=== PATIENT | male | born 1960 | race Caucasian/White ===

== ENCOUNTER 2024-04-07 16:48 | Inpatient (IN) | payer MEDICARE, BC, SELFPAY ==
[2024-04-07 14:17] VITALS: BP 144/82
--- NOTE | 2024-04-07 15:07 | ED.GENMED ---
History of Present Illness
General
Chief Complaint: Skin Problem
Source: patient and spouse
Time Seen by Provider: 04/07/24 15:05
Travel History
Have you had any contact with someone who has COVID-19?: No
Do you have any symptoms of coronavirus? Fever > 100 degrees, chills, cough, shortness of breath, sore throat, loss of taste or smell, muscle aches, or headache?: No
History of Present Illness
History of Present Illness:
This patient is a 64-year-old male who states that on March 26 he suffered a laceration to the right posterior calf area when a sharp edge of lattice struck his leg. He went to an urgent care, and sutures were placed. He was put on 2 antibiotics for
a week, 1 of which was named doxycycline and another described as a 'blue pill but I do not know the name'. He has noticed in the last few days that the areas become increasingly swollen, painful, red, and warm. He denies fever, chills, sweats,
nausea, vomiting, numbness, tingling, purulent discharge. He does note occasional clear discharge. He denies a history of diabetes or neuropathy. He denies chest pain, shortness of breath, or other complaints. He went to the urgent care today
and was referred to the emergency room.
Past History
Past History
ED Past Medical History: Asthma, Hypercholesterolemia, Other (RA, diverticulitis) and Other (Chronic pain, ulnar nerve dysfunction)
ED Past Surgical History: Orthopedic (Left foot surgery, ulnar nerve surgery left arm) and Other (Skin graft right foot)
Social History
Tobacco: Non-smoker
Alcohol: Occasional
Drug: None
Personal:
Living: with family
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
Phy Exam
Physical Exam
Physical Exam:
GENERAL: Alert , in no apparent distress, very pleasant
EYE: pupils equal and reactive
NECK: Supple, no significant adenopathy.
ENT: o/p clr, mmm.
CARDIAC: Regular rate and rhythm .
LUNGS: Clear breath sounds bilaterally, no acute respiratory distress, no wheezes/rales/rhonchi
ABDOMEN: Soft, without focal tenderness, no r/g, no cvat
NEUROLOGICAL: Alert and oriented, no focal neuro deficits
SKIN: Warm and dry, skin intact except for a large wound noted at the right posterior calf, open but dry, necrotic/dark tissue noted centrally, no fluctuance/crepitus/active drainage. Wound is noted to have surroundnig erythema/warmth/swelling
extend to distal aspect calf. 2+ dp pulses bilat.
MUSCULOSKELETAL: No edema except as above, well perfused.
PSYCH: Normal and appropriate interaction.
Course
Orders/Labs/Results
Orders:
Orders
04/07/24 Dinner
Regular
At Your Request: Full Participation
04/07/24 15:05
Tibia/Fibula, Right 2 View [CR Leg Tibia/fibula Right 2 Vw] Urgent
Comment:
Reason For Exam: injury
04/07/24 15:16
Complete Blood Count/With Diff Urgent
Comprehensive Metabolic Panel Urgent
Blood Culture Stat
MELE Source: Blood/Venous
Specimen Description:
04/07/24 15:20
Vancomycin [Vancocin] 2,000 mg 0.9% Sodium Chloride 500 ml [Nss] 500 ml IV NOW
04/07/24 15:22
CeFAZolin 2 GRAM [Ancef] 2 grams in 10 ml IV NOW
04/07/24 16:38
Admit/Transfer Patient As Directed
Co-Sign Provider:
Level of Care: Inpatient admission
Assign to:: Medical/Surgical
Physician / Group: monica
Diagnosis: puncture wound
Reason for Hospitalization: puncture wound right posterior calf/cellulitis
Expected length of stay greater than two midnights?: Yes
ELOS- Estimated Length of Stay in days: 2
I certify the patient meets the requirements for IP care: Yes
04/07/24 16:39
Code Status As Directed
Resuscitation Status: Full Code
04/07/24 18:20
Activity As Directed
Activity Level: As Tolerated
Vital Signs As Directed
Frequency: Per unit guidelines
DX Deep Vein Thrombosis Video Routine
04/07/24 18:30
Atorvastatin [Lipitor] 10 mg PO QPM
04/07/24 18:33
Oxycodone/Acetaminophen [Percocet 5/325] 2 tablet PO Q6HPRN PRN
04/07/24 20:00
Heparin 5,000 units SC Q12
04/08/24 04:15
Complete Blood Count/With Diff IN AM
Comprehensive Metabolic Panel IN AM
04/08/24 08:00
Hydrochlorothiazide [Oretic] 25 mg PO DAILY
Multivitamin [Theragran] 1 tablet PO DAILY
testosterone 1 pump TOPICAL DAILY
Abnormal Lab Results
04/07/24
15:16
RBC 4.21 L 10^6/uL
(4.70-6.10)
Hgb 12.7 L g/dL
(13.0-18.0)
Hct 36.1 L %
(39.0-52.0)
Creatinine 0.5 L mg/dL
(0.7-1.3)
Glucose 102 H mg/dl
(70-99)
Total Protein 5.7 L g/dl
(6.3-8.2)
04/07/24 15:16
04/07/24 15:16
Vital Signs
Initial and Last Documented VS:
Initial Vital Signs
Temp Pulse Resp BP Pulse Ox
98.1 F 85 18 144/82 95
04/07/24 14:17 04/07/24 14:17 04/07/24 14:17 04/07/24 14:17 04/07/24 14:17
Last Documented Vital Signs
Temp Pulse Resp BP Pulse Ox
98.4 F 74 20 141/75 98
04/08/24 07:48 04/08/24 07:48 04/08/24 07:48 04/08/24 07:48 04/08/24 08:10
*Critical Care Note
Total Time (30-74mins, 75-104mins- exclusive of procedures): Not Applicable
Update Note
Update Note:
Patient presents to the Emergency Department with ___R calf wound
Number and Complexity of Problems Addressed at the Encounter
� Chronic conditions affecting care:
� Acute Exacerbation and/or Progression of Chronic Illness:
� Differential Diagnosis includes: but not limited to abscess, cellulitis, foreign body retained, etc etc.
Amount and/or Complexity of Data to be Reviewed and Analyzed
� I performed an independent evaluation of and my interpretation is:
EKG:
CT:
Xrays: Read by radiology, unremarkable, no fracture or dislocation, no foreign bodies noted
Laboratory Studies: Mild nonspecific anemia, very slight elevated blood sugar
Other:
� Review of other/old records reveals: Patient was in the hospital October 2022 with a leg wound infection, initially treated with vancomycin and then changed to cefazolin.
� Clinical information was obtained by an independent historian:. Information also from pharmacist here who clarifies that patient was on clindamycin 300 mg twice daily for 7 days and doxycycline 100 mg twice daily x 10 days
� Prescriptions/Medications Considered but not given:
� Further testing considered but not performed:
Risk of Complications and/or Morbidity or Mortality of Patient Management
� Social determinants of health affecting care:
� Discussion with other providers (PCP, Hospitalists, Consultants, etc):
� Escalation of care including admission/observation vs risk of discharge considered: Will send [place] text to hospitalist now recommending admission/observation for continued IV antibiotics.
ED Attending Note
-
Portions of this chart may have been created with voice recognition software.� Occasional wrong word or��sound alike� substitutions may have occurred due to the inherent limitations of voice recognition software.
Discharge Plan
Departure
Patient Disposition: Admit
Date of Disposition: 04/07/24
Time of Disposition: 16:02
Admit to: Med/Surg
Presentation/result/management discussed w/ accepting MD/DO: Hospitalist
Condition: Good
Discharge Problem:
Cellulitis of right lower extremity
Interventions
Interventions:
*Risk Screen - Suicide Last Done: 04/07/24 14:17
*General Assessment Last Done: 04/07/24 14:17
*Neglect/Abuse Screening Last Done: 04/07/24 14:17
ED- Fall Risk Assessment Last Done: 04/07/24 18:39
*ED COVID-19 Vaccine History Last Done: 04/07/24 18:32
*Nursing Disposition Last Done: 04/07/24 18:39
ED-Skin Assessment Last Done: 04/07/24 15:40
Discharge Date and Time
Discharge Date/Time: 04/07/24 18:40
[2024-04-07 15:33] LABS: % Basophils 0.3 % (0-2); % Eosinophils 0.6 % (0-6); % Immature Granulocytes 0.5 % (0-0.5); % Lymphocytes 24.7 % (20.5-51.1); % Neutrophils 66.9 % (42.2-75.2); Absolute Lymphocytes 1.6 10^3/uL (1.2-3.4); Absolute Monocytes 0.5 10^3/uL (0.1-0.6); Absolute Neutrophils 4.3 10^3/uL (1.4-6.5); Hematocrit 36.1 % (39.0-52.0); Hemoglobin 12.7 g/dL (13.0-18.0); Mean Corp Hgb Conc. 35.2 g/dL (33.0-37.0); Mean Corpuscular Hgb 30.2 pg (27.0-31.0); Mean Corpuscular Volume 85.7 fL (80.0-94.0); Mean Platelet Volume 8.9 fL (7.4-10.4); Nucleated Red Blood Cells % 0 % (-); Platelet Count 229 10^3/uL (130-400); Red Blood Cell Count 4.21 10^6/uL (4.70-6.10); Red Cell Dist. Width 13.7 % (11.5-14.5); White Blood Cell Count 6.4 10^3/uL (4.8-10.8)
[2024-04-07 15:47] LABS: ALT (SGPT) 23 U/L (0-50); AST (SGOT) 26 U/L (17-59); Albumin 3.5 g/dl (3.5-5.0); Alkaline Phosphatase 85 U/L (38-126); Blood Urea Nitrogen 17 mg/dl (9-20); Calcium 9.1 mg/dl (8.4-10.2); Carbon Dioxide 26 mmol/L (22-30); Chloride 106 mmol/L (98-107); Estimated Creatinine Clearance > 125 ml/min; Glucose 102 mg/dl (70-99); Sodium 138 mmol/L (135-145); Total Bilirubin 0.9 mg/dl (0.2-1.3); Total Protein 5.7 g/dl (6.3-8.2); eGFR > 60.00
[2024-04-07] MEDS: ANCEF 10 IV (15:55)
[2024-04-07] MEDS: VANCOCIN 540 MG IV (15:56)
--- NOTE | 2024-04-07 16:45 | HPS.HSE ---
Family Physician
-
Family Physician: Clari Bowers
Chief Complaint
-
wound
History of Present Illness
64-year-old male past medical history of right lower extremity cellulitis, chronic ulcer right plantar midfoot, asthma, hyperlipidemia, presenting with puncture wound. On March 26 he was working on a deck outside and a sharp piece of wood pierced the
posterior part of his right leg. He went to urgent care and had wood splinters removed and sutures placed however they did not hold. He was started on doxycycline and clindamycin that day and he completed 10-day course. Over the past 2 days he
has noticed clear discharge from the wound and increased swelling, redness and pain around the wound. He went to urgent care today and he was referred to the emergency room.
Medical History
Past Medical History
Past Medical History: Reports Other (lower extremity cellulitis, chronic ulcer right plantar midfoot, asthma, hyperlipidemia)
Past Surgical History: Reports Other (Orthopedic (Left foot surgery, ulnar nerve surgery left arm) and Other (Skin graft right foot))
Social History
Tobacco: Non-smoker
Alcohol: None
Drug: None
Family History
Family History: Not pertinent
Allergies / Home Medications
Allergies reflects when Allergies were last updated in [employer].
Home Medications with original date entered in [employer]
Allergy/Medication List:
Allergies
Allergy/AdvReac Type Severity Reaction Status Date / Time
amoxicillin [From Augmentin] Allergy nausea, Verified 04/07/24 15:17
diarrhea
clavulanic acid Allergy nausea, Verified 04/07/24 15:17
[From Augmentin] diarrhea
Home Medications
dupilumab 300 mg/2 mL subcutaneous syringe (Dupixent) 300 mg SQ Q2W 11/16/21
multivitamin with folic acid 400 mcg tablet (Tab-A-Renée) 1 tab PO DAILY 11/16/21
simvastatin 20 mg tablet 20 mg PO QPM 11/16/21
hydrochlorothiazide 25 mg tablet 25 mg PO DAILY 04/07/22
oxycodone-acetaminophen 10 mg-325 mg tablet 1 tab PO Q6HPRN PRN mild pain 04/07/24
testosterone 1 pump topical DAILY 04/07/24
Review of Systems
-
History Source: Patient
A 12 point ROS was completed and negative except as noted: Yes
Constitutional: Reports No Symptoms
EENT: Reports No Symptoms
Respiratory: Reports No Symptoms
Cardiac: Reports No Symptoms
Abdomen/GI: Reports No Symptoms
: Reports No Symptoms
Musculoskeletal: Reports No Symptoms
Skin: Reports See HPI
Neurological: Reports No Symptoms
Endocrine: Reports No Symptoms
Hematologic/Lymphatic: Reports No Symptoms
Psych: Reports No Symptoms
Physical Exam
Vital Signs
Vital Signs
Temp Pulse Resp BP Pulse Ox
98.1 F 85 18 144/82 95
04/07/24 14:17 04/07/24 14:17 04/07/24 14:17 04/07/24 14:17 04/07/24 14:17
Physical Exam
General: Well Developed, Well Nourished and No Apparent Distress
HEENT: NormoCephalic, Moist mucous membranes and Atraumatic
Respiratory: Clear
Cardiac: S1/S2 and Regular Rhythm; No Murmur or Rub
GI: Soft, Non Tender, Non Distended and Normal Bowel Sounds; No Organomegaly
Rectal: Deferred by Provider
Musculoskeletal: No Clubbing, No Cyanosis and No Edema
Skin: Other (posterior rigt calf wound with surrounding erythema ); No Rash
Neuro: Nonfocal/grossly intact
Laboratory Results
-
04/07/24 15:16
04/07/24 15:16
Laboratory Results
Total Bilirubin 0.9 mg/dl (0.2-1.3) 04/07/24 15:16
AST 26 U/L (17-59) 04/07/24 15:16
ALT 23 U/L (0-50) 04/07/24 15:16
Alkaline Phosphatase 85 U/L (38-126) 04/07/24 15:16
Data Reviewed
-
Lab Data: Labs Reviewed by me
Old Records: Reviewed
Impression/Plan
-
IMPRESSION:
PLAN:
# Puncture wound of posterior right calf with associated cellulitis
-Patient given tetanus/diphtheria vaccine
-Wound does not appear deep
-Tibia/fibula x-ray negative with no foreign body visible
-Vancomycin, cefazolin given in ER, continue vancomycin
-Wound care consulted
History of right plantar foot ulcer
-Appears healed
Asthma
-On Dupixent
Essential hypertension
-Continue hydrochlorothiazide
Hyperlipidemia
-Continue statin
Arthritis
-Continue Percocet
Full code
DVT prophylaxis�heparin
Regular diet
[2024-04-07 17:30] VITALS: BP 144/80
[2024-04-07] MEDS: PERCOCET 5/325 2 TABLET PO (18:38)
[2024-04-07 18:55] VITALS: BP 132/75; BMI 30.3
--- NOTE | 2024-04-07 19:09 | PHA.VAN.IN ---
Assessment
- Assessment
Renal Function: Appears similar to baseline (08/04/22 BASELINE SCR: 0.6)
Concomitant Antimicrobials: NONE
- Previous Dosing Experience
Previous Regimen: NONE
AUC Dosing Plan
- Dosing Variables
Dosing Weight (kg): 96.1
Dosing CrCl (ml/min): 100
Vd coefficient (L/kg): 0.6
- Empiric Dosing
Initial / Loading Dose: 2GM
Maintenance Regimen: 1GM IV Q12H
Estimated AUC (mcg*h/mL): 414
Estimated Peak (mcg*h/mL): 26.7
Estimated Trough (mcg/ml): 10.2
Estimated Half Life (H): 7.9
Pharmacokinetics Vancomycin I
- -
Patient Age: 64
Patient Sex: Male
Vancomycin Day #: 1
Indication: Skin And Soft Tissue ([R] CALF CELLULITIS)
Requesting Provider: GERARD
Height / Weight:
Height 5 ft 10 in
Actual Weight 95.708 kg
Pertinent Past Medical History: FAILED OUTPT TX WITH DOXYCYCLINE/CLINDAMYCIN
- Vital Signs / Lab Results
Temp Pulse Resp BP Pulse Ox
98.9 F 87 18 132/75 96
04/07/24 18:55 04/07/24 18:55 04/07/24 18:55 04/07/24 18:55 04/07/24 18:55
Lab Results - Hematology
04/07/24
15:16
WBC 6.4
Lab Results - Chemistry
04/07/24
15:16
BUN 17
Creatinine 0.5 L
Estimated Creat Clear > 125
Albumin 3.5
--- NOTE | 2024-04-07 19:19 | PTCARENOTE ---
Patient admitted to room 401-01 from the ER. Vital signs stable. Reviewed plan of care with patient. Patient verbalizes understanding of teaching and denies questions at this time. Patient rates pain in right calf a 9/10. Given 2 Percocets as
ordered for pain. Will re-evaluate for pain relief.
[2024-04-07] MEDS: LIPITOR 10 MG PO (19:37)
[2024-04-07] MEDS: HEPARIN 5000 UNITS SC (19:38)
[2024-04-07] MEDS: ADACEL 0.5 ML IM (19:38)
[2024-04-07 23:25] VITALS: BP 139/78
[2024-04-08] MEDS: PERCOCET 5/325 2 TABLET PO ×3 (03:37→22:20)
[2024-04-08 04:45] LABS: % Basophils 0.4 % (0-2); % Eosinophils 1.3 % (0-6); % Immature Granulocytes 0.4 % (0-0.5); % Lymphocytes 33.2 % (20.5-51.1); % Monocytes 8.6 % (1.7-9.3); % Neutrophils 56.1 % (42.2-75.2); Absolute Eosinophils 0.1 10^3/uL (0-0.7); Absolute Lymphocytes 1.8 10^3/uL (1.2-3.4); Absolute Monocytes 0.5 10^3/uL (0.1-0.6); Absolute Neutrophils 3.1 10^3/uL (1.4-6.5); Hematocrit 35.6 % (39.0-52.0); Hemoglobin 12.2 g/dL (13.0-18.0); Mean Corp Hgb Conc. 34.3 g/dL (33.0-37.0); Mean Corpuscular Hgb 29.8 pg (27.0-31.0); Mean Corpuscular Volume 86.8 fL (80.0-94.0); Mean Platelet Volume 9.1 fL (7.4-10.4); Nucleated Red Blood Cells % 0 % (-); Platelet Count 233 10^3/uL (130-400); Red Cell Dist. Width 13.8 % (11.5-14.5); White Blood Cell Count 5.5 10^3/uL (4.8-10.8)
[2024-04-08 05:29] LABS: ALT (SGPT) 24 U/L (0-50); AST (SGOT) 22 U/L (17-59); Albumin 3.2 g/dl (3.5-5.0); Alkaline Phosphatase 88 U/L (38-126); Blood Urea Nitrogen 17 mg/dl (9-20); Calcium 8.7 mg/dl (8.4-10.2); Carbon Dioxide 28 mmol/L (22-30); Chloride 107 mmol/L (98-107); Estimated Creatinine Clearance > 125 ml/min; Glucose 117 mg/dl (70-99); Sodium 139 mmol/L (135-145); Total Bilirubin 0.5 mg/dl (0.2-1.3); Total Protein 5.5 g/dl (6.3-8.2); eGFR > 60.00
[2024-04-08] MEDS: VANCOCIN 200 IV (05:38)
[2024-04-08 07:48] VITALS: BP 141/75
--- NOTE | 2024-04-08 08:16 | PHA.VAN.FU ---
Vancomycin Assessment / Plan
- Assessment
Renal Function: Stable
WBC's are: WNL
In the past 24 hrs, patient has been: Afebrile
- Dosing Plan
Adjust Regimen to: Vanc 1250mg Q12H starting at 1800
New Regimen Predicts: AUC (429), Peak (29.5), Trough (10)
- Monitoring Plan
No level(s) ordered at this time: consider levels in next few days
- Follow Up
Pharmacy will continue to follow.
Vancomycin Follow UP
- -
Patient Age: 64
Patient Sex: Male
Vancomycin Day #: 2
Indication: Skin And Soft Tissue
Requesting Provider: Dr. Duron
Pertinent Antimicrobial Allergies:
amoxicillin/clavulanate - nausea / diarrhea
Height / Weight:
Height 5 ft 10 in
Actual Weight 95.708 kg
Pertinent Past Medical History: BMI ~30
- Vital Signs / Lab Results
Temp Pulse Resp BP Pulse Ox
98.4 F 74 20 141/75 95
04/08/24 07:48 04/08/24 07:48 04/08/24 07:48 04/08/24 07:48 04/08/24 07:48
Lab Results - Hematology
04/07/24 04/08/24
15:16 04:15
WBC 6.4 5.5
Lab Results - Chemistry
04/07/24 04/08/24
15:16 04:15
BUN 17 17
Creatinine 0.5 L 0.5 L
Estimated Creat Clear > 125 > 125
Albumin 3.5 3.2 L
--- NOTE | 2024-04-08 08:30 | WOUNDNOTE ---
[facility] RN note: Patient admitted with R posterior calf wound with possible cellulitis.
See H&P for complete history.
PMH: R plantar foot ulcer with surgery, now healed, asthma.
Wound Location and type/assessment: Patient admitted with: full thickness R posterior calf wound d/t trauma to subcutaneous layer or deeper. Wound pink, yellow with some loosening black necrotic tissue. R tib fib x-ray nothing acute. +Palpable R
pedal pulse. Mild buttocks rash he uses Lotrimin cream.
Appetite: regular diet.
Pressure redistribution devices in place: [employer] Accumax. Patient is mobile.
Plan: R calf dressing changed. Air chair cushion given to help cushion calf while in bed. Patient instructed local care and to make appointment at [facility] next week.
Updated Dr. Balderas re: wound appearance; defer to hospitalist if general surgeon inpatient vs outpatient for bedside debridement evaulation; wait response. Updated MICH Manzo. Wound supplies given to patient.
Care plan to be updated and will follow as needed.
Recommend follow up at wound care center upon discharge.
[2024-04-08] MEDS: ORETIC 25 MG PO (08:31)
[2024-04-08] MEDS: HEPARIN 5000 UNITS SC ×2 (08:31→19:36)
[2024-04-08] MEDS: THERAGRAN 1 TABLET PO (08:31)
--- NOTE | 2024-04-08 09:43 | W.PN.HOSP.TC ---
Today's Communication/Plan
-
For further surgical debridement after consultation hopefully today
Continue present course of antibiotics
Was intolerant to doxycycline as outpatient
Alternative may be Bactrim that he is taken before
Assessment / Plan
Assessment / Plan
64-year-old male past medical history of right lower extremity cellulitis, chronic ulcer right plantar midfoot, asthma, hyperlipidemia, presenting with puncture wound. On March 26 he was working on a deck outside and a sharp piece of wood pierced the
posterior part of his right leg. He went to urgent care and had wood splinters removed and sutures placed however they did not hold. He was started on doxycycline and clindamycin that day and he completed 10-day course. Over the past 2 days he
has noticed clear discharge from the wound and increased swelling, redness and pain around the wound. He went to urgent care today and he was referred to the emergency room.
# Puncture wound of posterior right calf with associated cellulitis
-Patient given tetanus/diphtheria vaccine
-Wound was noted to have some tunneling to about 2.5 cm proximally
-Tibia/fibula x-ray negative with no foreign body visible
-Vancomycin, cefazolin given in ER, continue vancomycin
-Wound care consulted and note appreciated and reviewed
-Will consult general surgery for further debridement
History of right plantar foot ulcer
-Appears healed
Asthma
-On Dupixent
Essential hypertension
-Continue hydrochlorothiazide
Hyperlipidemia
-Continue statin
Arthritis
-Continue Percocet
Full code
DVT prophylaxis�heparin
Regular diet
Anticipated Discharge: Within 24 hours
Subjective/Interval History
-
Date of Service: April 08, 2024
Patient is somewhat anxious to leave after has been seen and evaluated by wound care/informed him that we need surgery input for further debridement hopefully at bedside he is in agreement
Objective Data
-
Labs:
Laboratory Results
04/08/24
04:15
WBC 5.5
Hgb 12.2 L
Hct 35.6 L
Plt Count 233
Sodium 139
Potassium 4.0
Chloride 107
Carbon Dioxide 28
BUN 17
Creatinine 0.5 L
Glucose 117 H
Calcium 8.7
Total Bilirubin 0.5
AST 22
ALT 24
Alkaline Phosphatase 88
Vital Signs:
Vital Signs
Temp Pulse Resp BP Pulse Ox
98.4 F 74 20 141/75 98
04/08/24 07:48 04/08/24 07:48 04/08/24 07:48 04/08/24 07:48 04/08/24 08:10
I&O
04/07/24 04/08/24 04/09/24
06:59 06:59 06:59
Intake Total 680 / 680
Balance 680 / 680
Review of Systems
-
History Source: Patient
All other systems: Not reviewed unless documented
Skin: Reports Sores
Physical Exam
-
General: Well Developed
HEENT: Normocephalic
Respiratory: Clear to Auscultation
Cardiac: Regular Rhythm
Musculoskeletal: Edema, Right Lower Extrem (Large open wound in posterior calf with serous drainage surrounding erythema)
Skin: Ulcers
--- NOTE | 2024-04-08 15:27 | CM ---
Alert awake oriented patient who lives with his daughter Melissa who lives in a 2 story home with 1 step to enter and 13 steps to bed and bathroom. He is independent in driving and in all activities of daily living.He was offered VN he declined need.He
has Inogen at home uses prn.
No VN hx / No SNF history
Pharmacy [facility]
PCP DR Bowers
PLAN Home Declined VN
[2024-04-08 15:57] VITALS: BP 140/83
[2024-04-08] MEDS: VANCOCIN 275 MG IV (17:27)
[2024-04-08] MEDS: LIPITOR 10 MG PO (17:27)
--- NOTE | 2024-04-08 18:23 | CON.GS ---
Consultation
-
Performing Provider: Harish
Reason for Consultation: Right lower extremity wound with cellulitis
Medical History
-
Chief Complaint: Right lower extremity wound
History of Present Illness:
Patient is a 64-year-old male who sustained a traumatic injury to the right lower extremity while working on his deck. He initially sought care at an urgent care center and had the wound washed out and closed with sutures. He was started on a
10-day course of antibiotics.
States that the wound broke down, sutures were released and then the area became swollen with increased redness and pain prompting emergency department evaluation and subsequent hospitalization. Surgery consultation requested for evaluation and
possible debridement.
Past Medical History
Past Medical History: Other (Previous history of lower extremity cellulitis, chronic plantar midfoot ulcer, asthma, hyperlipidemia)
Past Surgical History: Other (Left foot surgery, ulnar nerve surgery in the left arm, skin grafting to the right foot)
Social History
Tobacco: Non-Smoker
Living: With Family
Employment: Disabled
Family History
Family History: Reviewed & Not Pertinent
Allergies / Home Medications
Allergy/AdvReac Type Severity Reaction Status Date / Time
amoxicillin [From Augmentin] Allergy nausea, Verified 04/07/24 15:17
diarrhea
clavulanic acid Allergy nausea, Verified 04/07/24 15:17
[From Augmentin] diarrhea
�Medication �Instructions �Recorded �Confirmed �Type
dupilumab 300 mg/2 mL subcutaneous 300 mg SQ Q2W 11/16/21 04/07/24 History
syringe (Dupixent)
multivitamin with folic acid 400 1 tab PO DAILY 11/16/21 04/07/24 History
mcg tablet (Tab-A-Renée)
simvastatin 20 mg tablet 20 mg PO QPM 11/16/21 04/07/24 History
hydrochlorothiazide 25 mg tablet 25 mg PO DAILY 04/07/22 04/07/24 History
oxycodone-acetaminophen 10 mg-325 1 tab PO Q6HPRN PRN mild pain 04/07/24 04/07/24 History
mg tablet
testosterone 1 pump topical DAILY 04/07/24 04/07/24 History
Review of Systems
-
History Source: Patient
All other systems: Negative unless noted
A 10 point review of systems was completed, and was negative except as per HPI.
Physical Exam
Vital Signs
Temp Pulse Resp BP Pulse Ox
98.6 F 66 18 140/83 99
04/08/24 15:57 04/08/24 15:57 04/08/24 15:57 04/08/24 15:57 04/08/24 15:57
04/07/24 04/08/24 04/09/24
06:59 06:59 06:59
Actual Weight 95.708 kg
Body Mass Index (BMI) 30.3
Lab Results
04/08/24 04:15
04/08/24 04:15
WBC 5.5 10^3/uL (4.8-10.8) 04/08/24 04:15
Hgb 12.2 g/dL (13.0-18.0) L 04/08/24 04:15
Hct 35.6 % (39.0-52.0) L 04/08/24 04:15
Plt Count 233 10^3/uL (130-400) 04/08/24 04:15
Abs Immat Gran (auto) 0.0 10^3/uL (0-0.05) 04/08/24 04:15
Neutrophils % 56.1 % (42.2-75.2) 04/08/24 04:15
Physical Exam
General: Well Developed, Well Nourished, No Apparent Distress, Comfortable and Other (Lying in hospital bed)
HEENT: Normocephalic, Anicteric and Moist Mucous Membranes
Respiratory: Non Labored Respirations
Cardiac: Regular Rhythm
Skin: Other (Right lower extremity: Posterior calf with open wound and areas of necrotic tissue/nonviable skin. Some sloughing as well. Surrounding erythema and edema.)
Data Reviewed
-
Radiology: Image Personally Visualized and interpreted (Right leg tibia/fibula 4 views 04/07/2024: No fracture or dislocation. Soft tissues are unremarkable)
Assessment / Plan
-
Assessment: 64-year-old male with traumatic right lower extremity wound with resultant cellulitis. On examination there are clearly areas of full-thickness devitalized skin and building up of sloughing.
Advised patient of recommendation for bedside debridement to facilitate healing process which she was in agreement with.
No local anesthetic required.
Utilizing sharp scissor dissection, sharp excisional debridement was performed to remove all of the necrotic dermis down to underlying subcutaneous fat. No tendon, muscle exposure. Areas of exudative buildup/softening sharply excisionally debrided
as well with scissors. Wound is triangular shaped measuring 6 x 6 x 5.5 cm. No significant undermining. No identified abscess or deeper fluid collections.
Plan: No further role for additional debridement at this time anticipated.
Local wound care: Saline moistened gauze as wet-to-dry dressing for the next few days to help with continued mechanical debridement; ABD pad and wrap extremity.
Antibiotics as per primary service for surrounding cellulitis.
Will reevaluate wound in a.m. to confirm stability prior to discharge. Would anticipate further outpatient care with the wound care clinic.
[2024-04-08] MEDS: LOTRIMIN 1% CREAM 1 APPLIC TOPICAL (19:36)
[2024-04-08 23:06] VITALS: BP 138/76
[2024-04-09] MEDS: VANCOCIN 275 MG IV (05:00)
[2024-04-09] MEDS: PERCOCET 5/325 2 TABLET PO (06:28)
[2024-04-09 07:30] VITALS: BP 160/89
--- NOTE | 2024-04-09 07:51 | PHA.VAN.FU ---
Vancomycin Assessment / Plan
- Assessment
Renal Function: No New Labs Today
In the past 24 hrs, patient has been: Afebrile
- Dosing Plan
Continue: Vanc 1250mg Q12H
- Monitoring Plan
No level(s) ordered at this time: consider levels in next few days
- Follow Up
Pharmacy will continue to follow.
Vancomycin Follow UP
- -
Patient Age: 64
Patient Sex: Male
Vancomycin Day #: 3
Indication: Skin And Soft Tissue
Requesting Provider: Dr. Duron
Pertinent Antimicrobial Allergies:
amoxicillin/clavulanate - nausea / diarrhea
Height / Weight:
Height 5 ft 10 in
Actual Weight 95.708 kg
Pertinent Past Medical History: BMI ~30
- Vital Signs / Lab Results
Temp Pulse Resp BP Pulse Ox
98 F 70 16 160/89 98
04/09/24 07:30 04/09/24 07:30 04/09/24 07:30 04/09/24 07:30 04/09/24 07:30
Lab Results - Hematology
04/07/24 04/08/24
15:16 04:15
WBC 6.4 5.5
Lab Results - Chemistry
04/07/24 04/08/24
15:16 04:15
BUN 17 17
Creatinine 0.5 L 0.5 L
Estimated Creat Clear > 125 > 125
Albumin 3.5 3.2 L
Microbiology Results
04/07/24 15:16 Blood Culture - Preliminary
Blood/Venous No Growth in 24 hours- Final report to follow
[2024-04-09] MEDS: ORETIC 25 MG PO (07:54)
[2024-04-09] MEDS: HEPARIN 5000 UNITS SC (07:54)
[2024-04-09] MEDS: THERAGRAN 1 TABLET PO (07:54)
[2024-04-09] MEDS: LOTRIMIN 1% CREAM 1 APPLIC TOPICAL (07:55)
--- NOTE | 2024-04-09 09:10 | W.DS.TRANS ---
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
-
Discharge Instructions:
Instructions:
Stand-Alone Forms:
Changes to Home Medications: Yes
Discharge Medications:
DC Medications w/original date entered in [facility]
dupilumab 300 mg/2 mL subcutaneous syringe (Dupixent) 300 mg SQ Q2W 11/16/21
multivitamin with folic acid 400 mcg tablet (Tab-A-Renée) 1 tab PO DAILY 11/16/21
simvastatin 20 mg tablet 20 mg PO QPM 11/16/21
hydrochlorothiazide 25 mg tablet 25 mg PO DAILY 04/07/22
oxycodone-acetaminophen 10 mg-325 mg tablet 1 tab PO Q6HPRN PRN mild pain 04/07/24
testosterone 1 pump topical DAILY 04/07/24
sulfamethoxazole 800 mg-trimethoprim 160 mg tablet (Bactrim DS) 1 tab PO BID #20 tabs 04/09/24
Home Medication Changes
sulfamethoxazole 800 mg-trimethoprim 160 mg tablet (Bactrim DS) 1 tab PO BID #20 tabs 04/09/24
Pending Results: No
--- NOTE | 2024-04-09 09:41 | PTCARENOTE ---
Reviewed discharge instructions with patient. Reviewed wound care instructions with patient. Patient made follow up appointment with wound care center for . Patient verbalizes all education related to discharge instructions. Peripheral IV
removed. Patient awaiting ride home at this time.
--- NOTE | 2024-04-09 09:45 | WOUNDNOTE ---
R LATERAL LOWER LEG
--- NOTE | 2024-04-09 09:46 | WOUNDNOTE ---
WIL RN NOTE: Followed up today along with Dr. Moreira at bedside. No change in wound care, saline wtd, dressing changed. Nurse Gonzalez updated discharge instructions already with appropriate wound care, patient will follow at [facility], apt. .
--- NOTE | 2024-04-09 09:59 | CM ---
MD entered order for discharge.
He said that dgvidal Peraza will drive him home.
Offered VN he declined need.
He said he will follow up with wound care center.
PLAN Home with no needs
--- NOTE | 2024-04-09 10:09 | PTCARENOTE ---
Dressing of right calf changed by team. Patient has no questions at this time. Patient awaiting to transport home.
--- NOTE | 2024-04-09 10:39 | W.PN.GS2 ---
Today's Communication / Plan
-
Continue local wound care
Assessment / Plan
-
Assessment: 64-year-old male with traumatic right lower extremity wound with resultant cellulitis.
PPD #1 bedside debridement
Wound are follow up planned next week
Plan:
No further role for additional debridement at this time anticipated.
Local wound care: Saline moistened gauze as wet-to-dry dressing for the next few days to help with continued mechanical debridement; ABD pad and wrap extremity.
Antibiotics as per primary service for surrounding cellulitis.
Ok for d/c from surgical standpoint
Subjective Data
-
Date of Service: April 09, 2024
Patient seen and examined at bedside with Dr. Moreira. Denies pain. Eager to go home.
Objective Data
-
Intake and Output
04/08/24 04/09/24 04/10/24
06:59 06:59 06:59
Intake Total 680 / 680 1929 193
Balance 680 / 680 1929
Intake:
Oral fluids 480 / 480 1380 / 1380
IV piggybacks 200 / 200 550 / 550
Other:
Number of approximated MODERATE 2
amounts of urine
Number of approximated LARGE 5
amounts of urine
How many times incontinent 3
MODERATE amount urine
Vital Signs
Temp Pulse Resp BP Pulse Ox
98 F 70 16 160/89 97
04/09/24 07:30 04/09/24 07:54 04/09/24 07:30 04/09/24 07:54 04/09/24 09:34
Lab Results
04/08/24 04:15
04/08/24 04:15
Calcium 8.7 mg/dl (8.4-10.2) 04/08/24 04:15
Total Bilirubin 0.5 mg/dl (0.2-1.3) 04/08/24 04:15
AST 22 U/L (17-59) 04/08/24 04:15
ALT 24 U/L (0-50) 04/08/24 04:15
Alkaline Phosphatase 88 U/L (38-126) 04/08/24 04:15
Total Protein 5.5 g/dl (6.3-8.2) L 04/08/24 04:15
Albumin 3.2 g/dl (3.5-5.0) L 04/08/24 04:15
Physical Exam
-
NAD
Right calf wound with granulating tissue in wound bed, some slough present. Surrounding erythema present but less than prior markings.
--- NOTE | 2024-04-09 12:04 | W.DCSUMMARY ---
Discharge Summary
Discharge Data
Date of Admission: 04/07/24
Date of Discharge: 04/09/24
-
Pending Results: No
Hospital Course
This is a 64-year-old male who suffered a traumatic injury to his right lower extremity while working on his deck. Apparently a sharp piece of wood pierced the posterior part of his right leg he went to an urgent care facility and had wood
splinters removed and sutures were placed these apparently did not hold and not diuresed he was started on a course of doxycycline and clindamycin but could not tolerate the doxycycline portion in the past 2 days prior to presentation had increased
swelling of the wound redness and pain around he was referred to our emergency room. Patient did receive a tetanus diphtheria vaccine wound did not appear to be significantly deep or tunneling a tib-fib x-ray proved negative for any signs of
foreign body he was placed on empiric antibiotic coverage with vancomycin and cefazolin and during hospitalization was continued on vancomycin with wound care consulted and recommendation for general surgery debridement at bedside which was
undertaken on 08 April areas of exudative buildup and softening were debrided wound was felt to be triangular without significant undermining and measured at 6 x 6 x 5.5 cm there is no identified areas of abscess or fluid collection. Recommendation
is for local wound care including saline moistened gauze is wet to dry dressing for the next few days with continued mechanical debridement and follow-up with wound care clinic along with an ABD pad and wrap the extremity. He will be placed on a
antibiotic course of Bactrim DS 1 tablet twice a day given a 10-day supply he should follow-up with his primary care provider in the interim for follow-up of the wound and also the wound care clinic
Discharge Plan
-
Patient Disposition: Home (Routine Discharge)
Discharge Diagnosis/Procedures: Right leg wound dehiscence after suturing with cellulitis
Status post surgical debridement need follow-up with wound care
Condition: Good
Activity Restrictions/Additional Instructions:
Wound Care Instructions
R leg wound-as per surgeon's instructions. Saline moistened gauze as wet-to-dry dressing for the next few days to help with continued mechanical debridement; ABD pad and wrap extremity.
Antibiotic Bactrim DS 1 tablet twice a day for at least 1 week until seen in follow-up
Follow up at wound care center call for an appointment.
Referrals:
Clari Bowers DO [Family Provider] - in one week
Prescriptions:
New
sulfamethoxazole-trimethoprim [Bactrim DS] 800-160 mg tablet
1 tab PO BID Qty: 20 0RF
Continued
simvastatin 20 MG tablet
20 mg PO QPM
Dupixent Syringe 300 MG/2 ML syringe
300 mg SQ Q2W
multivitamin with folic acid [Tab-A-Renée] 1 TABLET tablet
1 tab PO DAILY
hydrochlorothiazide 25 MG tablet
25 mg PO DAILY
oxycodone-acetaminophen 10-325 mg Tablet
1 tab PO Q6HPRN PRN (Reason: mild pain)
testosterone 20.25 mg/1.25 gram (1.62 %) gel in metered-dose pump
1 pump topical DAILY
Discharge Orders:
Discharge Patient (As Directed); Ordered 04/09/24
Ordered By: Kian Balderas
Discharge Date and Time
Print Language: GEORGIAN
== END 2024-04-09 11:05 | disposition home or self-care (01) | DRG 603 ==
LOC: 4 EAST ACU 16:48
PROVIDERS: ADMITTING PHYSICIAN Hospitalist; ATTENDING PHYSICIAN Internal Medicine; CONSULT PHYSICIAN Surgery; EMERGENCY PHYSICIAN Emergency Medicine; FAMILY PHYSICIAN Family Medicine
DX: L03.115 Cellulitis of right lower limb (principal); T81.33XA Disruption of traumatic injury wound repair, initial encounter; I10 Essential (primary) hypertension; J45.909 Unspecified asthma, uncomplicated; Y83.8 Other surgical procedures as the cause of abnormal reaction of the patient, or of later complication, without mention of misadventure at the time of the procedure
CPT/HCPCS: 73590; 80053; 85025; 87040; 90471; 90715; 96374; 96375; 99284

== ENCOUNTER → 2024-04-15 08:03 | Outpatient (REF) | payer MEDICARE, BC, SELFPAY | LOC: WOUND 08:03 | PROVIDERS: ATTENDING PHYSICIAN Surgery; FAMILY PHYSICIAN Surgery | DX: L97.213 Non-pressure chronic ulcer of right calf with necrosis of muscle (principal) | CPT/HCPCS: 11043; 11046; 99203 ==

== ENCOUNTER 2025-01-19 16:14 | Inpatient (IN) | payer MEDICARE, BC, SELFPAY ==
[2025-01-18] VITALS (13 sets, daily range): BP systolic 94–150; BP diastolic 64–84; BMI 31.0; BMI 28.9
[2025-01-18 10:26] LABS: % Basophils 0.1 % (0-2); % Immature Granulocytes 0.7 % (0-0.5); % Lymphocytes 4.4 % (20.5-51.1); % Monocytes 1.2 % (1.7-9.3); % Neutrophils 93.6 % (42.2-75.2); Absolute Immature Granulocytes 0.1 10^3/uL (0-0.05); Absolute Lymphocytes 0.3 10^3/uL (1.2-3.4); Absolute Monocytes 0.1 10^3/uL (0.1-0.6); Absolute Neutrophils 6.8 10^3/uL (1.4-6.5); Hematocrit 49.2 % (39.0-52.0); Mean Corp Hgb Conc. 32.5 g/dL (33.0-37.0); Mean Corpuscular Hgb 27.9 pg (27.0-31.0); Mean Corpuscular Volume 85.7 fL (80.0-94.0); Mean Platelet Volume 9.3 fL (7.4-10.4); Nucleated Red Blood Cells % 0 % (-); Platelet Count 133 10^3/uL (130-400); Red Blood Cell Count 5.74 10^6/uL (4.70-6.10); Red Cell Dist. Width 15.7 % (11.5-14.5); White Blood Cell Count 7.3 10^3/uL (4.8-10.8)
[2025-01-18 10:35] LABS: ALT (SGPT) 93 U/L (0-50); AST (SGOT) 86 U/L (17-59); Albumin 3.8 g/dl (3.5-5.0); Alkaline Phosphatase 132 U/L (38-126); Blood Urea Nitrogen 18 mg/dl (9-20); Calcium 8.8 mg/dl (8.4-10.2); Carbon Dioxide 25 mmol/L (22-30); Chloride 95 mmol/L (98-107); Glucose 164 mg/dl (70-99); Potassium 3.9 mmol/L (3.5-5.1); Sodium 133 mmol/L (135-145); Total Bilirubin 1.7 mg/dl (0.2-1.3); Total Protein 6.2 g/dl (6.3-8.2); eGFR > 60.00
[2025-01-18 10:43] LABS: COVID-19 Antigen Negative (Negative)
--- NOTE | 2025-01-18 13:17 | ED.GENMED ---
History of Present Illness
General
Chief Complaint: Fever
Source: patient
Time Seen by Provider: 01/18/25 12:41
History of Present Illness
History of Present Illness:
64-year-old male presents to the emergency room complaining of fever, chills, back pain, cough which has been present for the past 4 to 5 days. Patient does have history of significant asthma. He also does have 'sciatica' for which she has had
several procedures. Patient denies any recent travel or periods of immobilization. He denies any dysuria or frequency. He does not use oxygen on a regular basis at home but notes he does need oxygen if he were to fly because his oxygen level gets
too low while flying. Patient did have a course of prednisone for asthma exacerbation that he finished about 5 days ago. Patient notes that his back pain is quite significant. It is worse with movement. He states he has not had pain this severe
previously.
Past History
Past History
ED Past Medical History: Asthma, Hypercholesterolemia, Other (RA, diverticulitis) and Other (Chronic pain, ulnar nerve dysfunction)
ED Past Surgical History: Orthopedic (Left foot surgery, ulnar nerve surgery left arm) and Other (Skin graft right foot)
Social History
Tobacco: Non-smoker
Alcohol: Occasional
Drug: None
Personal:
Living: with family
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
Phy Exam
Physical Exam
Physical Exam:
General: Awake, Alert, Oriented X3. No acute distress.
Vitals: Febrile, tachycardic
Head: Atraumatic
Eyes: Pupils equal, EOMI
Throat: Airway intact, no exudates
Neck: Trachea midline
Lungs: Expiratory wheezes
Heart: Regular rate, no murmurs
Abd: Soft, Nontender, No pulsatile mass
Back: Tenderness palpation left paraspinal musculature. No pain with percussion over the spine itself.
Neuro: Nonfocal
Skin: Warm, dry, no rash
Extremities: pulses equal b/l, no edema
Sepsis
Sepsis Screening
Sepsis Assessment: Sepsis
Sepsis Screening: Lactate >2mmol/L
Sepsis Screen
Sepsis Screen: Sepsis
Date: 01/18/25
Time: 15:30
Course
Orders/Labs/Results
Orders:
Orders
01/18/25 09:56
Chest [CR Chest - 2 Views ] Urgent
Comment:
Reason For Exam: fever, cough
01/18/25 10:09
C-Reactive Protein Urgent
Comment: ADD ON
COVID-19 Antigen Urgent
Source: Nasal Swab
Complete Blood Count/With Diff Urgent
Comprehensive Metabolic Panel Urgent
Erythrocyte Sed Rate Urgent
Comment: ADD ON
Influenza A+B Rapid Molecular Urgent
MELE Source: Nasal Swab
Specimen Description:
01/18/25 13:14
CT Chest PE Study Urgent
Comment:
Reason For Exam: fever, hypoxia,
0.9% Sodium Chloride 1000 ml [Nss] 1,000 ml IV BOLUS
01/18/25 13:17
HYDROmorphone [Dilaudid] 0.5 mg IV NOW STA
01/18/25 13:19
Add On- LAB Urgent
Tests Added?: crp, sed rate
01/18/25 13:36
Lactate Level [Lactic Acid] Urgent
Blood Culture Q30M
MELE Source: Blood/Venous
Specimen Description:
Blood Culture Q30M
MELE Source: Blood/Venous
Specimen Description:
01/18/25 15:02
Urinalysis Reflex To Culture Urgent
Date Specimen was Collected: 01/18/25
Time Specimen was Collected: 15:00
Urine Microscopic Reflex Cult Urgent
Urine Culture Urgent
MELE Source: U
Specimen Description:
Date Specimen was Collected: 01/18/25
Time Specimen was Collected: 15:00
01/18/25 15:51
US Renal With Bladder Urgent
Comment: bladder not full ok, looking at ureteral jets
Reason For Exam: flank pain, fever, eval for obstruction
01/18/25 17:23
CefTRIAXone [Rocephin] 1,000 mg IV NOW STA
01/18/25 17:33
Ketorolac [Toradol] 15 mg .ROUTE .STK-MED ONE
01/18/25 17:38
Ketorolac [Toradol] 15 mg IV NOW STA
01/18/25 19:08
CT Abdomen With Iv Contrast Urgent
Comment:
Reason For Exam: polynephritis
01/18/25 19:12
Admit/Transfer Patient As Directed
Co-Sign Provider:
Level of Care: Observation services
Assign to:: Medical/Surgical
Physician / Group: Gladis Duron
Diagnosis: Acute pyelonephritis, Fever
PRN Pain Medication Management As Directed
May give lesser potent ordered pain med per pt: Yes
preference::
Protocol:: Medication orders for pain may be administered in a
manner that supports deferring to patient preference
when the pt is:
- Requesting an ordered lesser potent pain medication.
Least to most potent pain medications are defined
as: acetaminophen < NSAID < tramadol < opioids
(morphine, oxycodone, hydromorphone).
- Requesting a lesser dose of the same medication IF
ORDERED.
- Requesting a less intrusive route of administration
if both routes are prescribed by the provider (PO <
IV).
01/18/25 19:14
Code Status As Directed
Resuscitation Status: Full Code
Abnormal Lab Results
01/18/25 01/18/25
10:09 15:02
MCHC 32.5 L g/dL
(33.0-37.0)
RDW 15.7 H %
(11.5-14.5)
Abs Immat Gran (auto) 0.1 H 10^3/uL
(0-0.05)
Absolute Neuts (auto) 6.8 H 10^3/uL
(1.4-6.5)
Absolute Lymphs (auto) 0.3 L 10^3/uL
(1.2-3.4)
Immature Gran % 0.7 H %
(0-0.5)
Neutrophils % 93.6 H %
(42.2-75.2)
Lymphocytes % 4.4 L %
(20.5-51.1)
Monocytes % 1.2 L %
(1.7-9.3)
Sodium 133 L mmol/L
(135-145)
Chloride 95 L mmol/L
(98-107)
Glucose 164 H mg/dl
(70-99)
Total Bilirubin 1.7 H mg/dl
(0.2-1.3)
AST 86 H U/L
(17-59)
ALT 93 H U/L
(0-50)
Alkaline Phosphatase 132 H U/L
(38-126)
C-Reactive Protein 141.90 H mg/L
(0.0-10.00)
Total Protein 6.2 L g/dl
(6.3-8.2)
Urine Ketones 1+ A
(Negative)
Ur Occult Blood Reflex 1+ A
(Negative)
Urine Nitrite (Reflex) Positive A
(Negative)
Urine Bilirubin 2+ A
(Negative)
Urine Urobilinogen 2+ A
(Neg - 1+)
Leukocyte Esterase Rfl 2+ A
(Negative)
Urine RBC 3-6 A /HPF
(0-2)
Urine WBC (Reflex) 16-20 A /HPF
(0-5)
Urine Bacteria (Reflex) Few A
(Negative)
Urine Albumin (Reflex) 2+ A
(Neg - Trace)
01/18/25 10:09
01/18/25 10:09
Vital Signs
Initial and Last Documented VS:
Initial Vital Signs
Temp Pulse Resp BP Pulse Ox
98.1 F 60 18 133/79 96
01/18/25 09:53 01/18/25 09:53 01/18/25 09:53 01/18/25 09:53 01/18/25 09:53
Last Documented Vital Signs
Temp Pulse Resp BP Pulse Ox
99.6 F 104 17 121/81 93
01/18/25 12:43 01/18/25 18:45 01/18/25 18:45 01/18/25 18:19 01/18/25 18:45
MDM/Problems Addressed
Differential Diagnosis Includes:
Viral illness, pneumonia, pyelonephritis, discitis
MDM/Problems Addressed:
Patient presents with fever for 4 days as well as significant back pain. Also cough and URI symptoms. COVID and flu are negative. Chest x-ray does not show a clear infiltrate. CT obtained which shows no PE and no evidence of pneumonia.
Urinalysis suggestive of urinary tract infection though he does have some squamous epithelial cells in the urine raising the possibility of it being contaminated. Given his fever tachycardia a ultrasound was obtained to exclude hydronephrosis.
There was no hydronephrosis and so the decision was made to treat the patient for pyelonephritis with Rocephin and hospitalize him. I considered discitis or other spine infection as a possible source of the fever given the amount of pain he is
having however the back pain is clearly to the left of the midline making this less likely. Plan is to treat the patient with Rocephin and admit him. If clinically he is not improving or his culture the urine negative further workup for spinal
source can be pursued.
*Radiology
Radiology exam reviewed: radiology read reviewed
*Pulse Oximetry
Patient hypoxic: no
*Security Strategist Interpretation
Rate: tachycardiac
Interpretation: abnormal
Rhythm: sinus tachycardia
*Critical Care Note
Total Time (30-74mins, 75-104mins- exclusive of procedures): 35 min
comment:
Critical care statement: A total of 35 minutes of critical care time was provided for this patient. This includes management of unstable vital signs, evaluation of the patient at bedside, reviewing the patient's pertinent medical records, discussion
with consultants, review of old EKGs and review of pertinent medical records. This time with separate from time utilized to perform the aforementioned documented procedures
ED Attending Note
-
Portions of this chart may have been created with voice recognition software.� Occasional wrong word or��sound alike� substitutions may have occurred due to the inherent limitations of voice recognition software.
Discharge Plan
Departure
Patient Disposition: Admit
Date of Disposition: 01/18/25
Time of Disposition: 17:46
Admit to: Med/Surg
Presentation/result/management discussed w/ accepting MD/DO: Hospitalist
Condition: Fair
Discharge Problem:
Fever, Acute pyelonephritis
Prescriptions:
No Action
simvastatin 20 MG tablet
20 mg PO HS
Dupixent Syringe 300 MG/2 ML syringe
300 mg SQ Q2W
oxycodone-acetaminophen 10-325 mg Tablet
1 tab PO Q6HPRN PRN (Reason: mild pain)
cyanocobalamin (vitamin B-12) 1,000 mcg Tablet
1,000 mcg PO DAILY
Theragen Tablet
1 tab PO DAILY
sildenafil 100 mg Tablet
100 mg PO DAILYPRN PRN (Reason: ed)
potassium 99 mg Tablet
99 mg PO DAILY
testosterone cypionate 200 mg/mL Oil
200 mg IM Q2W
magnesium oxide 250 mg magnesium Tablet
250 mg PO DAILY
cholecalciferol (vitamin D3) [Vitamin D3] 25 mcg (1,000 unit) Tablet
25 mcg PO DAILY
Referrals:
Clari Bowers DO [Family Provider] -
Interventions
Interventions:
*Risk Screen - Suicide Last Done: 01/18/25 09:53
*General Assessment Last Done: 01/18/25 09:53
*Neglect/Abuse Screening Last Done: 01/18/25 12:44
*ED COVID-19 Vaccine History Last Done: 01/18/25 09:53
ED- Neurological Assessment Last Done: 01/18/25 18:20
ED-Skin Assessment Last Done: 01/18/25 18:20
Discharge Date and Time
Print Language: WALLISIAN
[2025-01-18] MEDS: NSS 1000 IV ×2 (13:32→22:01)
[2025-01-18] MEDS: DILAUDID 0.5 MG IV (13:33)
[2025-01-18 14:01] LABS: Lactic Acid 1.5 mmol/L (0.7-2.0)
[2025-01-18 15:09] LABS: Urine Albumin 2+ (Neg - Trace); Urine Bilirubin 2+ (Negative); Urine Character Clear (Clear); Urine Color Yellow; Urine Glucose Negative (Negative); Urine Ketone 1+ (Negative); Urine Leukocyte 2+ (Negative); Urine Nitrite Positive (Negative); Urine Occult Blood 1+ (Negative); Urine Urobilinogen 2+ (Neg - 1+)
[2025-01-18 15:17] LABS: Urine Bacteria Few (Negative); Urine Mucus Moderate; Urine White Cell 16-20 /HPF (0-5)
[2025-01-18 15:23] LABS: Erythrocyte Sed Rate 9 mm/hour (0-20)
[2025-01-18] MEDS: TORADOL 15 MG IV (17:39)
[2025-01-18] MEDS: ROCEPHIN 1000 MG IV (17:41)
--- NOTE | 2025-01-18 17:56 | HPS.HSE ---
Family Physician
-
Family Physician: Clari Bowers
Chief Complaint
-
fever, chills, cough and back pain
History of Present Illness
Patient is a 64-year-old male with past medical history significant for asthma, hyperlipidemia, lower extremity cellulitis and chronic ulcer right plantar midfoot who presented to [facility] ED for evaluation of fever, chills, back pain and
cough for past 4-5 days. Patient reports he has been around a ton of sick people recently including at home and work. He reports having cough, shortness of breath and fatigue. He denies any chest pain nausea, vomiting, constipation, diarrhea or
urinary symptoms.
Medical History
Past Medical History
Past Medical History: Reports Other
Additional Past Medical History:
asthma
hyperlipidemia
chronic back pain (sciatica)
lower extremity cellulitis
chronic ulcer right plantar midfoot
Past Surgical History: Reports Other
Additional Past Surgical History:
Left foot surgery, ulnar nerve surgery left arm
Skin graft right foot
Social History
Tobacco: Non-smoker
Alcohol: None
Drug: None
Personal:
Living: With Family
Employment: Employed
Family History
Family History: Other (Father: pancreatic cancer; Mother: [place])
Allergies / Home Medications
Allergies reflects when Allergies were last updated in [employer].
Home Medications with original date entered in [employer]
Allergy/Medication List:
Allergies
Allergy/AdvReac Type Severity Reaction Status Date / Time
amoxicillin [From Augmentin] Allergy nausea, Verified 01/18/25 09:55
diarrhea
clavulanic acid Allergy nausea, Verified 01/18/25 09:55
[From Augmentin] diarrhea
Home Medications
dupilumab 300 mg/2 mL subcutaneous syringe ([employer]) 300 mg SQ Q2W 11/16/21
simvastatin 20 mg tablet 20 mg PO HS 11/16/21
oxycodone-acetaminophen 10 mg-325 mg tablet 1 tab PO Q6HPRN PRN mild pain 04/07/24
cholecalciferol (vitamin D3) 25 mcg (1,000 unit) tablet (Vitamin D3) 25 mcg PO DAILY 01/18/25
cyanocobalamin (vitamin B-12) 1,000 mcg tablet 1,000 mcg PO DAILY 01/18/25
magnesium oxide 250 mg PO DAILY 01/18/25
potassium 99 mg tablet 99 mg PO DAILY 01/18/25
sildenafil 100 mg tablet 100 mg PO DAILYPRN PRN ed 01/18/25
testosterone cypionate 200 mg/mL intramuscular oil 200 mg IM Q2W 01/18/25
therapeutic multivitamin 1 tab PO DAILY 01/18/25
Review of Systems
-
History Source: Patient
Constitutional: Reports Fever, Fatigue and Chills
EENT: Reports No Symptoms
Respiratory: Reports Cough and Trouble Breathing (shortness of breath)
Cardiac: Reports No Symptoms
Abdomen/GI: Reports No Symptoms
: Reports No Symptoms
Musculoskeletal: Reports Other (back pain )
Skin: Reports No Symptoms
Neurological: Reports Headache
Endocrine: Reports No Symptoms
Hematologic/Lymphatic: Reports No Symptoms
Psych: Reports No Symptoms
Physical Exam
Vital Signs
Vital Signs
Temp Pulse Resp BP Pulse Ox
99.6 F 112 15 123/72 93
01/18/25 12:43 01/18/25 15:05 01/18/25 12:42 01/18/25 15:05 01/18/25 12:42
Physical Exam
General: Well Developed, Well Nourished, No Apparent Distress, Comfortable and Conversant
HEENT: NormoCephalic, Moist mucous membranes, Atraumatic, [place] Conjunctivae, Nose Appears Normal and Ears Appear Normal
Respiratory: Clear, Non Labored Respirations and Decreased Breath Sounds
Cardiac: S1/S2, Regular Rhythm and Tachycardia; No Murmur, Rub or Gallop
Breast: Deferred by me
GI: Soft, Non Tender, Non Distended and Normal Bowel Sounds; No Organomegaly
Rectal: Deferred by Provider
Genito-urinary: Deferred by me
Musculoskeletal: No Clubbing, No Cyanosis and No Edema
Skin: Warm and IV/Catheter Site; No Rash
Neuro: Awake, Alert, AO x 3 and Nonfocal/grossly intact
Psych: Calm
Laboratory Results
-
01/18/25 10:09
01/18/25 10:09
Laboratory Results
Lactic Acid 1.5 mmol/L (0.7-2.0) 01/18/25 13:36
Total Bilirubin 1.7 mg/dl (0.2-1.3) H 01/18/25 10:09
AST 86 U/L (17-59) H 01/18/25 10:09
ALT 93 U/L (0-50) H 01/18/25 10:09
Alkaline Phosphatase 132 U/L (38-126) H 01/18/25 10:09
Data Reviewed
-
Diagnostic Radiology: Report Reviewed by me (CXR: Overall low lung volumes. Minimal bibasilar linear densities most likely representing discoid atelectasis versus minor scarring.)
CT Scan: Report Reviewed by me (Chest: 1. No evidence of pulmonary embolism. 2. There is bibasilar atelectasis/scarring, similar in appearance to prior.)
Ultrasound: Report Reviewed by me (Renal: No sonographic evidence for hydronephrosis.)
Lab Data: Labs Reviewed by me
Impression/Plan
-
IMPRESSION/PLAN:
#pyelonephritis
headache, fever, back pain for 4 days
WBC 7.3, Lactic 1.5
UA: contaminated??
UA C&S: pending
Blood Cs: pending
Covid: negative
Influenza: negative
CXR: Overall low lung volumes.
Minimal bibasilar linear densities most likely representing discoid atelectasis versus minor scarring.
Chest Abd: 1. No evidence of pulmonary embolism.
2. There is bibasilar atelectasis/scarring, similar in appearance to prior.
Renal US: No sonographic evidence for hydronephrosis.
- Admit to med/surg
- Abdomen CT pending
- IVF
- supportive care
- IV antibiotics
#asthma
- continue Dupixent q2W a home
#hyperlipidemia
- continue simvastatin
#chronic back pain (sciatica)
- continue Percocet
Code status: full code
DVT prophylaxis: Lovenox sq
--- NOTE | 2025-01-18 19:20 | W.PN.UPDATE ---
Update Note
Progress Note Update
This is an addendum to the H&P written by Lisa Pearson on 01/18/2025. 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
64-year-old male past medical history of right lower extremity cellulitis, chronic ulcer right plantar midfoot, asthma, hyperlipidemia, right-sided sciatica presenting with fevers, chills, back pain and cough for the past 4 to 5 days. No vomiting
or diarrhea. No urinary symptoms.
Pain is in the right flank region tender in 1 area. Pain is not like his usual sciatic pain he says. Patient on 2 L oxygen.
Labs show some transaminitis
Renal ultrasound shows no evidence of hydronephrosis. CT chest unremarkable. Urinalysis showing positive nitrates, +2 leukocyte esterase, 16-20 WBC.
Patient with sepsis. Concerned that patient could still have pyelonephritis despite negative ultrasound. Check CT abdomen pelvis. Urine culture, blood cultures pending. Lumbar discitis is also possibility of patient is not tender over the lumbar
spine and it is clearly lateral. Consider MRI lumbar spine if no source found.
[2025-01-18] MEDS: LIPITOR 10 MG PO (22:01)
[2025-01-18] MEDS: ROXICODONE 10 MG PO (22:27)
[2025-01-19] MEDS: ROXICODONE 10 MG PO ×2 (04:59→12:14)
[2025-01-19 07:20] VITALS: BP 116/72
--- NOTE | 2025-01-19 07:30 | W.PN.HOSP.TC ---
Today's Communication/Plan
-
Continue antibiotics, IV fluids, follow cultures
Echo
Patient refused spine MRI
Assessment / Plan
Assessment / Plan
Physical Exam
General: Not in acute distress
HEENT: Normocephalic, Moist mucous membranes
Respiratory: Clear to Auscultation Bilaterally
Cardiac: S1/S2, Regular Rhythm and Regular Rate
GI: Soft, Non Tender, Non Distended and Normal Bowel Sounds
Musculoskeletal: No Cyanosis and No Edema
Skin: Warm and Dry
Neuro: Awake, Alert, AAO x 3. Cranial Nerves 2 through 12 grossly intact, strength and sensation grossly intact in bilateral upper and lower extremities.
Psych: Calm
Assessment/Plan
64-year-old male past medical history of right lower extremity cellulitis, chronic ulcer right plantar midfoot, asthma, hyperlipidemia, right-sided sciatica presented with fevers, chills, back pain and cough for the 4 to 5 days prior to
presentation. No vomiting or diarrhea. No urinary symptoms. Pain was in the right flank region tender in 1 area. Pain was not like his usual sciatic pain he says. Patient on 2 L oxygen. Labs showed some transaminitis. Renal ultrasound showed no
evidence of hydronephrosis. CT chest was unremarkable. Urinalysis showed positive nitrates, +2 leukocyte esterase, 16-20 WBC. Patient with sepsis. Lumbar discitis is also possibility of patient is not tender over the lumbar spine and it is clearly
lateral.
#Gram Positive/Strep Bacteremia of Unknown Etiology
-Initial blood cultures coming back positive for Strep
-Continue Vancomycin and Cefazolin for now, repeat blood cultures ordered
-Spine appeared unremarkable in CT imaging
-Check echo
-Patient adamantly refused MRI Spine imaging saying that he is claustrophobic and the only way he can get any MRI is if it is an outpatient open MRI
-Patient also said his back pain has resolved
-Will check with radiology to see whether can do a more dedicated CT imaging of the spine
-Will consider ID consultation
#asthma
- continue Dupixent q2W a home
#hyperlipidemia
- continue simvastatin
#chronic back pain (sciatica)
- continue Percocet
Code status: full code
DVT prophylaxis: Lovenox sq
Anticipated Discharge: > 48 hours
Subjective/Interval History
-
Date of Service: January 19, 2025
Patient was seen and examined. He reported feeling fine, he said his back pain resolved. He denied any numbness, tingling, weakness or any saddle anesthesia or bowel or urinary incontinence.
Objective Data
-
Labs:
Laboratory Results
01/19/25
06:46
WBC Pending
Hgb Pending
Hct Pending
Plt Count Pending
Sodium Pending
Potassium Pending
Chloride Pending
Carbon Dioxide Pending
BUN Pending
Creatinine Pending
Glucose Pending
Calcium Pending
Vital Signs:
Vital Signs
Temp Pulse Resp BP Pulse Ox
98.4 F 104 18 110/71 95
01/18/25 23:33 01/18/25 23:33 01/18/25 23:33 01/18/25 23:33 01/18/25 23:33
I&O
01/18/25 01/19/25 01/20/25
06:59 06:59 06:59
Intake Total 1380 / 1380
Output Total 850 / 850
Balance 530 / 530
[2025-01-19 07:41] LABS: Hemoglobin 13.4 g/dL (13.0-18.0); Mean Corp Hgb Conc. 33.5 g/dL (33.0-37.0); Mean Corpuscular Volume 83.7 fL (80.0-94.0); Platelet Count 97 10^3/uL (130-400); Red Blood Cell Count 4.78 10^6/uL (4.70-6.10); Red Cell Dist. Width 15.9 % (11.5-14.5); White Blood Cell Count 9.1 10^3/uL (4.8-10.8)
--- NOTE | 2025-01-19 08:12 | PHA.VAN.IN ---
Assessment
- Assessment
Renal Function: Appears similar to baseline
Concomitant Antimicrobials: cefazolin
AUC Dosing Plan
- Dosing Variables
Dosing Weight (kg): 94
Dosing CrCl (ml/min): 99
Vd coefficient (L/kg): 0.7
- Empiric Dosing
Initial / Loading Dose: 2000mg - 01/19 09:07
Maintenance Regimen: Vanc 1250mg Q12H starting at 1800
Estimated AUC (mcg*h/mL): 467
Estimated Peak (mcg*h/mL): 29.4
Estimated Trough (mcg/ml): 11.8
Estimated Half Life (H): 8
- Monitoring
No levels ordered at this time: considering levels in next few days
Pharmacokinetics Vancomycin I
- -
Patient Age: 64
Patient Sex: Male
Vancomycin Day #: 1
Indication: Bacteremia
Requesting Provider: Dr. Starkey
Pertinent Antimicrobial Allergies:
amoxicillin/clavulanic acid - nausea / diarrhea
Height / Weight:
Height 5 ft 11 in
Actual Weight 93.939 kg
- Vital Signs / Lab Results
Temp Pulse Resp BP Pulse Ox
98.7 F 86 18 116/72 97
01/19/25 07:20 01/19/25 07:20 01/19/25 07:20 01/19/25 07:20 01/19/25 07:20
Lab Results - Hematology
01/18/25 01/19/25
10:09 06:46
WBC 7.3 9.1
Lab Results - Chemistry
01/18/25
10:09
BUN 18
Creatinine 0.8
Albumin 3.8
01/18/25
13:36
Lactic Acid 1.5
Lab Results - Urine
01/18/25
15:02
Urine Nitrite (Reflex) Positive A
Leukocyte Esterase Rfl 2+ A
Urine WBC (Reflex) 16-20 A
Ur Squamous Epith Cells 6-10
Urine Bacteria (Reflex) Few A
Microbiology Results
01/18/25 13:36 Blood Culture - Preliminary
Blood/Venous Positive culture in progress
Gram Stain - Final
01/18/25 13:36 Blood Culture - Preliminary
Blood/Venous Positive culture in progress
Gram Stain - Final
01/18/25 10:09 Influenza Types A & B (GEORGE) - Final
Nasal Swab Negative for Influenza A & B, NAAT
Negative results must be combined with clinical observations
and patient history.
Nucleic Acid Amplification test (NAAT)performed on the
[employer] NOW platform.
[2025-01-19 08:54] LABS: Blood Urea Nitrogen 22 mg/dl (9-20); Calcium 8.6 mg/dl (8.4-10.2); Chloride 100 mmol/L (98-107); Estimated Creatinine Clearance 99 ml/min; Glucose 114 mg/dl (70-99); Potassium 3.8 mmol/L (3.5-5.1); Sodium 131 mmol/L (135-145); eGFR > 60.00
[2025-01-19 08:56] LABS: Carbon Dioxide 22 mmol/L (22-30)
[2025-01-19] MEDS: VITAMIN D3 (cholecalciferol) 25 MCG PO (09:06)
[2025-01-19] MEDS: MAGNESIUM OXIDE 250 MG PO (09:06)
[2025-01-19] MEDS: VITAMIN B-12 1000 MCG PO (09:07)
[2025-01-19] MEDS: THERAGRAN 1 TABLET PO (09:07)
[2025-01-19] MEDS: VANCOCIN 540 MG IV (09:07)
[2025-01-19] MEDS: NSS 1000 IV ×2 (09:08→17:51)
[2025-01-19] MEDS: ANCEF 10 IV ×2 (09:09→17:50)
[2025-01-19 11:28] VITALS: BP 110/60
[2025-01-19] MEDS: TYLENOL 325 MG PO (12:14)
[2025-01-19] MEDS: VANCOCIN 275 MG IV (17:50)
[2025-01-19] MEDS: FLEXERIL 10 MG PO (17:50)
[2025-01-19] MEDS: LOVENOX 40 MG SC (17:50)
[2025-01-19 19:41] VITALS: BP 146/92
[2025-01-19] MEDS: LIPITOR 10 MG PO (20:51)
[2025-01-19 23:30] VITALS: BP 119/60
[2025-01-20] VITALS (10 sets, daily range): BP systolic 114–136; BP diastolic 74–95
[2025-01-20] MEDS: NSS 1000 IV ×3 (00:28→22:45)
[2025-01-20] MEDS: ROXICODONE 10 MG PO ×2 (01:33→19:33)
--- NOTE | 2025-01-20 01:40 | W.PN.UPDATE ---
Update Note
Progress Note Update
Patient w/new onset afib, HR 140-150's. EKG confirmed afib with RVR. Vital signs: BP 132/79, HR 149, Resp 18, O2 97 on 1L NC, oral temp 97.8. Patient denies chest pain, palpitations, sob, n/v/d. Patient states he has no cardiac hx but did see
[employer] for stress test recently so he could begin working out at the gym again.
Patient given bolus Cardizem 10 mg IV x 1 stat. Cardizem gtt started at 5 mg/hr, not to be titrated. Cardiology consulted, Dr. Wilson.
--- NOTE | 2025-01-20 01:43 | PTCARENOTE ---
Patients' HR in 150s afib on tele, confirmed with EKG. [facility] made aware. Medicated with Oxycodone 10mg for back pain. no new orders at this time.
[2025-01-20] MEDS: ANCEF 10 IV ×3 (02:16→17:30)
[2025-01-20] MEDS: CARDIZEM 10 MG IV (02:28)
[2025-01-20] MEDS: CARDIZEM 125 IV ×2 (03:04→18:04)
[2025-01-20] MEDS: VANCOCIN 275 MG IV (06:11)
[2025-01-20] MEDS: DILAUDID 0.5 MG IV (07:23)
[2025-01-20] MEDS: VITAMIN D3 (cholecalciferol) 25 MCG PO (07:23)
[2025-01-20] MEDS: THERAGRAN 1 TABLET PO (07:23)
[2025-01-20] MEDS: MAGNESIUM OXIDE 250 MG PO (07:23)
[2025-01-20] MEDS: VITAMIN B-12 1000 MCG PO (07:23)
[2025-01-20 07:46] LABS: % Basophils 0.2 % (0-2); % Eosinophils 0.3 % (0-6); % Immature Granulocytes 0.7 % (0-0.5); % Lymphocytes 14.4 % (20.5-51.1); % Monocytes 10.6 % (1.7-9.3); % Neutrophils 73.8 % (42.2-75.2); Absolute Immature Granulocytes 0.1 10^3/uL (0-0.05); Absolute Lymphocytes 1.3 10^3/uL (1.2-3.4); Absolute Monocytes 0.9 10^3/uL (0.1-0.6); Absolute Neutrophils 6.4 10^3/uL (1.4-6.5); Hematocrit 46.3 % (39.0-52.0); Hemoglobin 14.9 g/dL (13.0-18.0); Mean Corp Hgb Conc. 32.2 g/dL (33.0-37.0); Mean Corpuscular Volume 86.9 fL (80.0-94.0); Mean Platelet Volume 10.3 fL (7.4-10.4); Nucleated Red Blood Cells % 0 % (-); Platelet Count 127 10^3/uL (130-400); Red Blood Cell Count 5.33 10^6/uL (4.70-6.10); White Blood Cell Count 8.7 10^3/uL (4.8-10.8)
[2025-01-20 08:49] LABS: ALT (SGPT) 53 U/L (0-50); AST (SGOT) 37 U/L (17-59); Albumin 2.8 g/dl (3.5-5.0); Alkaline Phosphatase 128 U/L (38-126); Blood Urea Nitrogen 14 mg/dl (9-20); Calcium 8.6 mg/dl (8.4-10.2); Carbon Dioxide 27 mmol/L (22-30); Chloride 106 mmol/L (98-107); Estimated Creatinine Clearance > 125 ml/min; Glucose 114 mg/dl (70-99); Potassium 3.8 mmol/L (3.5-5.1); Sodium 140 mmol/L (135-145); Total Bilirubin 0.6 mg/dl (0.2-1.3); Total Protein 5.3 g/dl (6.3-8.2); eGFR > 60.00
--- NOTE | 2025-01-20 09:19 | W.PN.HOSP.TC ---
Today's Communication/Plan
-
See plan
Assessment / Plan
Assessment / Plan
Physical Exam
General: Not in acute distress
HEENT: Normocephalic, Moist mucous membranes
Respiratory: Clear to Auscultation Bilaterally
Cardiac: S1/S2, Regular Rhythm and Regular Rate
GI: Soft, Non Tender, Non Distended and Normal Bowel Sounds
Musculoskeletal: No Cyanosis and No Edema
Skin: Warm and Dry
Neuro: Awake, Alert, AAO x 3. Cranial Nerves 2 through 12 grossly intact, strength and sensation grossly intact in bilateral upper and lower extremities.
Psych: Calm
Assessment/Plan
64-year-old male past medical history of right lower extremity cellulitis, chronic ulcer right plantar midfoot, asthma, hyperlipidemia, right-sided sciatica presented with fevers, chills, back pain and cough for the 4 to 5 days prior to
presentation. No vomiting or diarrhea. No urinary symptoms. Pain was in the right flank region tender in 1 area. Pain was not like his usual sciatic pain he says. Patient on 2 L oxygen. Labs showed some transaminitis. Renal ultrasound showed no
evidence of hydronephrosis. CT chest was unremarkable. Urinalysis showed positive nitrates, +2 leukocyte esterase, 16-20 WBC. Patient with sepsis. Lumbar discitis is also possibility of patient is not tender over the lumbar spine and it is clearly
lateral.
#Gram Positive/Strep pneumoniae bacteremia of unknown etiology
-Initial blood cultures coming back positive for Strep
-Continue Cefazolin for now, repeat blood cultures with no growth to date. Received doses of Vancomycin earlier now Vanco stopped.
-Spine appeared unremarkable in CT imaging
-Echo with no vegetations
-Patient adamantly refused MRI Spine imaging saying that he is claustrophobic and the only way he can get any MRI is if it is an outpatient open MRI
-Patient also said his back pain has resolved, but now only has sciatica-type back pain
-ID consulted, appreciate their evaluation and recommendations
-Recheck CXR in the morning
#New-onset Atrial Fibrillation with RVR
- Cardizem Drip
- Heparin drip for AC, plan for Eliquis on discharge
#Acute thrombocytopenia
- Suspected from infection.
- Follow for now
#Asthma
- continue Dupixent q2W a home
#Hyperlipidemia
- continue simvastatin
#Chronic back pain (sciatica)
- continue Percocet
Code status: Full Code
DVT prophylaxis: Heparin Drip
Anticipated Discharge: > 48 hours
Subjective/Interval History
-
Date of Service: January 20, 2025
Patient was seen and examined. He reported some sciatica-type back pain (according to him) but denied any other symptoms or complaints.
Objective Data
-
Labs:
Laboratory Results
01/20/25
07:03
WBC 8.7
Hgb 14.9
Hct 46.3
Plt Count 127 L D
Sodium 140 D
Potassium 3.8
Chloride 106
Carbon Dioxide 27
BUN 14
Creatinine 0.6 L
Glucose 114 H
Calcium 8.6
Total Bilirubin 0.6 D
AST 37
ALT 53 H
Alkaline Phosphatase 128 H
Vital Signs:
Vital Signs
Temp Pulse Resp BP Pulse Ox
97.8 F 117 20 129/85 98
01/20/25 07:45 01/20/25 07:45 01/20/25 07:45 01/20/25 07:45 01/20/25 07:45
I&O
01/19/25 01/20/25 01/21/25
06:59 06:59 06:59
Intake Total 1380 / 1380 2640 / 2640
Output Total 850 / 850 3075 / 3075 300 / 300
Balance 530 / 530 -435 / -435 -300 / -300
--- NOTE | 2025-01-20 09:52 | CM ---
CM following re: discharge planning.
Reviewed pt's chart, met with pt.
Pt is a 64 year old male, admitted with primary dx of Gram Positive/Strep Bacteremia of Unknown Etiology
Pt reports he lives with spouse and 2 daughters in a 2SH, 2 steps to enter, has 5 supportive children. Pt described himself as independent in all areas [employer], drives. No DMF, VN or SNF history.
PCP: Clari Fernandes
Pharmacy: [facility]
D/C plan: home with anticipated no needs. Family to transport at discharge.
CM will follow with discharge plan updates as hospitalization progresses
--- NOTE | 2025-01-20 10:35 | CON.ID ---
Consultation
-
Date/Time Consultation Requested: January 19, 2025 [id number]
Date/Time Consultation Performed: January 20, 2025 1035
Requesting Provider: Dr. Jarret Starkey
Performing Provider: Dr. Manisha Cheng
Reason for Consultation: Strep Bacteremia
Chief Complaint / Past History
Chief Complaint
Fever and cough
History of Present Illness
64-year-old male with history of asthma, chronic back pain who presented to the hospital on January 18 with 3 days of fever, 5 days of cough and shortness of breath. Patient with mild hypoxic respiratory insufficiency. Chest x-ray showed
atelectasis. CT of the chest that showed no PE, there is scarring/atelectasis by base similar to prior. UA abnormal. CT of the abdomen: no pyelonephritis. COVID-negative. Influenza negative. Admission blood cultures x 2 positive for
Streptococcus pneumonia. He is currently on cefazolin and vancomycin. Patient reports he has had his pneumonia vaccine in 2021. He reports recent headache, rhinorrhea, sore throat. No neck stiffness. Cough nonproductive. No urinary symptoms.
He is constipated. He reports chronic back pain that goes across mid back, which is stable without change. He sees pain management for the back pain. No recent worsening of the back pain. Today patient reports he feels much improved. Cough,
shortness of breath, and headache resolved. He is afebrile in the hospital. Developed Afib with RVR overnight. Positive ill contacts with and daughter similar symptoms.
Past History
Additional Past Medical History:
Asthma
HLD
Chronic back pain (sciatica) sees pain management
Additional Past Surgical History:
Right foot skin graft
Left foot surgery
Left arm ulnar nerve surgery
Allergy History:
amoxicillin [From Augmentin] Allergy (Verified 01/18/25 09:55)
nausea, diarrhea
clavulanic acid [From Augmentin] Allergy (Verified 01/18/25 09:55)
nausea, diarrhea
Medications Reviewed: Yes
Current Antibiotics:
Cefazolin
Vancomycin
Social History
Tobacco: Non-Smoker
Alcohol: None
Drug: None
Personal:
Employment: Retired
Family History
Family History: Not Pertinent
Review of Systems
Review of Systems
HEENT: Negative Stiff Neck
Cardiovascular: Negative Chest Pain
Gasteroenterology: Negative Nausea, Vomiting or Diarrhea
Genital / Urological: Negative Dysuria or Flank Pain
Endocrine: Negative Weakness
Skin / Hair / Nails: Negative Rash
Neurological: Negative Dizziness
All systems: All other systems were reviewed and were negative
Vital Signs
Temp Pulse Resp BP Pulse Ox
97.8 F 117 20 129/85 98
01/20/25 07:45 01/20/25 07:45 01/20/25 07:45 01/20/25 07:45 01/20/25 07:45
Physical Exam
Physical Exam
Constitutional: No Acute Distress, Comfortable and Non-toxic
Head: Other (No frontal or max or sinus tenderness)
Eyes: No Conjunctival Hemorrhage and Sclera Anicteric
Pharynx: Benign
Cardiovascular: Regular Rate and S1/S2
Pulmonary: Coarse (Basis)
Gastrointestinal: Soft, Non Tender, Non Distended and Normal Bowel Sounds
Genito-Urinary: Negative CVA Tenderness
Extremities: Venous Insufficiency; Negative Edema
Musculoskeletal: Negative Spinal Tenderness
Neurological: AO x 3; Negative Meningeal Signs
Lab / Diagnostic Study Results
01/20/25 07:03
01/20/25 07:03
Abs Immat Gran (auto) 0.1 10^3/uL (0-0.05) H 01/20/25 07:03
Absolute Neuts (auto) 6.4 10^3/uL (1.4-6.5) 01/20/25 07:03
Absolute Lymphs (auto) 1.3 10^3/uL (1.2-3.4) 01/20/25 07:03
Absolute Monos (auto) 0.9 10^3/uL (0.1-0.6) H 01/20/25 07:03
Absolute Basos (auto) 0.0 10^3/uL (0-0.2) 01/20/25 07:03
Immature Gran % 0.7 % (0-0.5) H 01/20/25 07:03
Neutrophils % 73.8 % (42.2-75.2) 01/20/25 07:03
Lymphocytes % 14.4 % (20.5-51.1) L 01/20/25 07:03
Monocytes % 10.6 % (1.7-9.3) H 01/20/25 07:03
Eosinophils % 0.3 % (0-6) 01/20/25 07:03
Basophils % 0.2 % (0-2) 01/20/25 07:03
ESR 9 mm/hour (0-20) 01/18/25 10:09
Lactic Acid 1.5 mmol/L (0.7-2.0) 01/18/25 13:36
C-Reactive Protein 141.90 mg/L (0.0-10.00) H 01/18/25 10:09
Ur Squamous Epith Cells 6-10 /LPF (Few) 01/18/25 15:02
Microbiology Results
Micro:
01/19/25 10:20 Blood Culture - Preliminary
Blood/Venous No Growth in 24 hours- Final report to follow
01/18/25 13:36 Blood Culture - Preliminary
Blood/Venous Streptococcus pneumoniae
Gram Stain - Final
01/18/25 13:36 Blood Culture - Preliminary
Blood/Venous Streptococcus pneumoniae
Gram Stain - Final
01/19/25 08:41 Blood Culture - Preliminary
Blood/Venous No Growth in 24 hours- Final report to follow
01/18/25 15:02 Urine Culture - Final
Urine NO GROWTH
01/18/25 10:09 Influenza Types A & B (GEORGE) - Final
Nasal Swab Negative for Influenza A & B, NAAT
Negative results must be combined with clinical observations
and patient history.
Nucleic Acid Amplification test (NAAT)performed on the
[employer] NOW platform.
01/18/25 CT chest: No evidence of pulmonary embolism. There is bibasilar atelectasis/scarring, similar in appearance to prior.
01/18/25 CT abd: Symmetric bilateral renal contrast enhancement without suspicious CT findings for pyelonephritis. No hydronephrosis or nephrolithiasis.
Assessment / Plan
# Strep pneumoniae bacteremia
- Admission CXR and chest CT: no PNA
-No meningeal signs/sxs
- Repeat blood cx's neg to date
- DC Vancomycin
-Continue cefazolin for now
- Repeat CXR in am
# New onset afib with RVR
- Cardiology following
- TTE: no vege, EF 55%
# Acute thrombocytopenia
- Follow for now
# Chronic back pain - stable
--- NOTE | 2025-01-20 11:10 | CON.CAR ---
Addendum entered and electronically signed by Star Hernandez MD 01/20/25 13:29:
64 yo male with PMH of HTN admitted with fever, bacteremia. Source is being investigated. We are consulted for new A fib with RVR. He denies palps or CP. Exam with tachy, irregular rhythm, no murmurs, no edema. Tele: Afib with RVR. Echo: EF 55%,
mild.moderate MR, no vegetation.
Afib with RVR. New. Titrate diltiazem drip for rate control.
CHADS2-VASC =1 (and will be 2 when 65yo in under 2 months). Heparin drip for AC as source of bacteremia is investigated. Eventual eliquis.
If remains in A fib, will pursue rhythm control as outpatient after infection is treated.
Original Note:
Consultation
Consultation Request
Date/Time Consultation Requested: 01/20/25218
Date/Time Consultation Performed: 01/20/25 1105
Requesting Provider: Olena Cagle
Performing Provider: Janina DE DIOS for Dr. Hernandez
Reason for Consultation: AFIB with RVR
Medical History
-
Chief Complaint: fever, chills
History of Present Illness:
64 y/o male with asthma, sciatica with chronic back pain on oxycodone, dyslipidemia who is here for evaluation of fever up to 103.6 and chills. Also with cough and chronic back pain issues. He is seen to have strep pneumoniae bacteremia and has been
treated with intravenous antibiotics. We are consulted since he developed AFIB with RVR overnight. He is on a diltiazem drip. He is minimally symptomatic with palpitations, but notices that when he is ambulating and has pain. 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 He denies any cardiac issues though and reports unremarkable stress test and echo.
Past Medical History
Past Medical History: Hypercholesterolemia and Other (as above)
Social History
Tobacco: Non-Smoker
Alcohol: None
Family History
Family History: Reviewed & Not Pertinent
Allergies / Home Medications
Allergy/AdvReac Type Severity Reaction Status Date / Time
amoxicillin [From Augmentin] Allergy nausea, Verified 01/18/25 09:55
diarrhea
clavulanic acid Allergy nausea, Verified 01/18/25 09:55
[From Augmentin] diarrhea
�Medication �Instructions �Recorded �Confirmed �Type
dupilumab 300 mg/2 mL subcutaneous 300 mg SQ Q2W Mental Health/Anxiety 11/16/21 01/18/25 History
syringe (Dupixent)
simvastatin 20 mg tablet 20 mg PO HS High Cholesterol 11/16/21 01/18/25 History
oxycodone-acetaminophen 10 mg-325 1 tab PO Q6HPRN PRN mild pain 04/07/24 01/18/25 History
mg tablet
cholecalciferol (vitamin D3) 25 25 mcg PO DAILY Supplement 01/18/25 01/18/25 History
mcg (1,000 unit) tablet (Vitamin
D3)
cyanocobalamin (vitamin B-12) 1,000 mcg PO DAILY Supplement 01/18/25 01/18/25 History
1,000 mcg tablet
magnesium oxide 250 mg PO DAILY Supplement 01/18/25 01/18/25 History
potassium 99 mg tablet 99 mg PO DAILY Supplement 01/18/25 01/18/25 History
sildenafil 100 mg tablet 100 mg PO DAILYPRN PRN ed 01/18/25 01/18/25 History
testosterone cypionate 200 mg/mL 200 mg IM Q2W Hormonal Agent 01/18/25 01/18/25 History
intramuscular oil
therapeutic multivitamin 1 tab PO DAILY Supplement 01/18/25 01/18/25 History
Review of Systems
-
History Source: Patient
All other systems: Negative unless noted
Constitutional: Fever and Chills
Respiratory: Cough
Musculoskeletal: Other (back pain)
Physical Exam
Vital Signs
Temp Pulse Resp BP Pulse Ox
97.8 F 117 20 129/85 98
01/20/25 07:45 01/20/25 07:45 01/20/25 07:45 01/20/25 07:45 01/20/25 07:45
Lab Results
01/20/25 07:03
01/20/25 07:03
Physical Exam
General: Well Developed, Well Nourished and No Apparent Distress
HEENT: Normocephalic and Anicteric
Respiratory: Clear and Non Labored Respirations
Cardiac: Irregular Rhythm
Musculoskeletal: No Edema
Skin: Warm
Neuro: AO x 3
Psych: Calm
Impression / Plan
-
Strep Pneumoniae bacteremia:
-on ABX
-ID consulted
AFIB with RVR: paroxysmal
-continue IV diltiazem, which requires intensive monitoring- will increase rate since HR still fast. BP stable. Minimally symptomatic.
-[id number] score is 1 for former HTN, but will be 2 in February. Denies DM, CHF, CAD, CVA. Will initiate IV heparin, which also requires intensive monitoring.
-TSH pending, but this is in setting of acute illness
-echo as below
Back pain, chronic:
-on narcotics
-management per primary team
Asthma:
-stable without wheezing
HLD: statin
Mild to moderate MR:
-no symptoms
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
Data:
Echo 01/19/25: Normal biventricular size and systolic function without regional wall motion abnormality. LVEF 55%. Mild to moderate eccentric mitral regurgitation. Trace tricuspid regurgitation with pulmonary artery pressures at the upper limit of
normal (PASP 35 mmHg). No obvious valvular vegetations.
Data Reviewed
-
EKG: Tracing Personally Visualized and interpreted (AFIB with RVR 145 BPM)
Radiology: Report Reviewed by me (CXR: verall low lung volumes. Minimal bibasilar linear densities most likely representing discoid atelectasis versus minor scarring.)
Medical Tests (Nuc Med, Echo etc): Report Reviewed by me (echo with details as noted)
Labs: Labs Reviewed by me
[2025-01-20] MEDS: DILAUDID 0.25 MG IV ×2 (13:02→17:30)
[2025-01-20] MEDS: MIRALAX 17 GRAMS PO (13:02)
[2025-01-20 13:32] LABS: APTT 33.6 Sec (23.4-35.0)
[2025-01-20 13:38] LABS: TSH Reflex To Free T4 2.99 uIU/ml (0.47-4.68)
[2025-01-20] MEDS: HEPARIN 4000 UNITS IV (13:41)
[2025-01-20] MEDS: HEPARIN 25000 UNITS/250 ML IV (13:57)
[2025-01-20] MEDS: DULCOLAX 10 MG RECTAL (17:32)
[2025-01-20] MEDS: TYLENOL 325 MG PO (19:32)
[2025-01-20] MEDS: SENOKOT-S 1 TABLET PO (19:32)
[2025-01-20] MEDS: LIPITOR 10 MG PO (21:23)
[2025-01-20] MEDS: LIDOCAINE 4% PATCH TOPICAL ×2 (21:24→22:59)
[2025-01-20 21:30] LABS: APTT 39.5 Sec (23.4-35.0)
[2025-01-21] MEDS: ANCEF 10 IV ×2 (01:28→09:43)
[2025-01-21] MEDS: DILAUDID 0.25 MG IV ×3 (01:28→20:35)
[2025-01-21 03:25] VITALS: BP 152/94
[2025-01-21 05:04] LABS: APTT 38.5 Sec (23.4-35.0)
[2025-01-21 05:09] LABS: % Basophils 0.2 % (0-2); % Eosinophils 0.3 % (0-6); % Immature Granulocytes 0.7 % (0-0.5); % Lymphocytes 11.4 % (20.5-51.1); % Monocytes 6.8 % (1.7-9.3); % Neutrophils 80.6 % (42.2-75.2); Absolute Immature Granulocytes 0.1 10^3/uL (0-0.05); Absolute Lymphocytes 1.1 10^3/uL (1.2-3.4); Absolute Monocytes 0.7 10^3/uL (0.1-0.6); Hematocrit 40.3 % (39.0-52.0); Hemoglobin 13.2 g/dL (13.0-18.0); Mean Corp Hgb Conc. 32.8 g/dL (33.0-37.0); Mean Corpuscular Hgb 27.4 pg (27.0-31.0); Mean Corpuscular Volume 83.6 fL (80.0-94.0); Mean Platelet Volume 9.9 fL (7.4-10.4); Nucleated Red Blood Cells % 0 % (-); Platelet Count 149 10^3/uL (130-400); Red Blood Cell Count 4.82 10^6/uL (4.70-6.10); Red Cell Dist. Width 15.9 % (11.5-14.5); White Blood Cell Count 9.9 10^3/uL (4.8-10.8)
[2025-01-21 05:14] LABS: ALT (SGPT) 34 U/L (0-50); AST (SGOT) 27 U/L (17-59); Albumin 2.5 g/dl (3.5-5.0); Alkaline Phosphatase 121 U/L (38-126); Blood Urea Nitrogen 11 mg/dl (9-20); Calcium 8.3 mg/dl (8.4-10.2); Carbon Dioxide 26 mmol/L (22-30); Chloride 104 mmol/L (98-107); Estimated Creatinine Clearance > 125 ml/min; Glucose 126 mg/dl (70-99); Potassium 3.4 mmol/L (3.5-5.1); Sodium 136 mmol/L (135-145); Total Bilirubin 0.7 mg/dl (0.2-1.3); Total Protein 4.8 g/dl (6.3-8.2); eGFR > 60.00
[2025-01-21] MEDS: ROXICODONE 10 MG PO ×3 (06:20→22:44)
[2025-01-21] MEDS: TYLENOL 325 MG PO ×3 (06:20→22:46)
[2025-01-21] MEDS: SENOKOT-S 1 TABLET PO ×2 (06:21→22:44)
[2025-01-21] MEDS: MIRALAX 17 GRAMS PO (06:21)
[2025-01-21] MEDS: DULCOLAX 10 MG RECTAL (06:23)
[2025-01-21] MEDS: CARDIZEM 125 IV (07:09)
[2025-01-21 07:25] VITALS: BP 142/83
--- NOTE | 2025-01-21 07:32 | W.PN.HOSP.TC ---
Today's Communication/Plan
-
See plan
Assessment / Plan
Assessment / Plan
Physical Exam
General: Not in acute distress
HEENT: Normocephalic, Moist mucous membranes
Respiratory: Clear to Auscultation Bilaterally
Cardiac: S1/S2, Regular Rhythm and Regular Rate
GI: Soft, Non Tender, Non Distended and Normal Bowel Sounds
Musculoskeletal: No Cyanosis and No Edema
Skin: Warm and Dry
Neuro: Awake, Alert, AAO x 3. Cranial Nerves 2 through 12 grossly intact, strength and sensation grossly intact in bilateral upper and lower extremities.
Psych: Calm
Assessment/Plan
64-year-old male past medical history of right lower extremity cellulitis, chronic ulcer right plantar midfoot, asthma, hyperlipidemia, right-sided sciatica presented with fevers, chills, back pain and cough for the 4 to 5 days prior to
presentation. No vomiting or diarrhea. No urinary symptoms. Pain was in the right flank region tender in 1 area. Pain was not like his usual sciatic pain he says. Patient on 2 L oxygen. Labs showed some transaminitis. Renal ultrasound showed no
evidence of hydronephrosis. CT chest was unremarkable. Urinalysis showed positive nitrates, +2 leukocyte esterase, 16-20 WBC. Patient with sepsis. Lumbar discitis is also possibility of patient is not tender over the lumbar spine and it is clearly
lateral.
#Gram Positive/Strep pneumoniae bacteremia of unknown etiology
-Blood cultures came back positive for Strep
-Replace cefazolin with ceftriaxone 2g IV q24. Received doses of Vancomycin earlier now Vanco stopped.
-Plan is for 6 weeks of IV antibiotics
-Spine appeared unremarkable in CT imaging
-Echo with no vegetations
-Patient adamantly refused MRI Spine imaging saying that he is claustrophobic and the only way he can get any MRI is if it is an outpatient open MRI
-Patient also said his back pain has resolved, but now only has sciatica-type back pain
-ID consulted, appreciate their evaluation and recommendations
#Constipation
- Already had senokot/miralax/dulcolax today w/o success
- Enema ordered. Also Mag Citrate.
#New-onset Atrial Fibrillation with RVR
- Cardizem Drip
- Heparin drip for anticoagulation, plan for Eliquis on discharge
- Echo at some point after discharge
#Acute thrombocytopenia
- Suspected from infection.
- Follow for now
#Asthma
- continue Dupixent q2W a home
#Hyperlipidemia
- continue simvastatin
#Chronic back pain (sciatica)
- continue Percocet
Code status: Full Code
DVT prophylaxis: Heparin Drip
Anticipated Discharge: 24 - 48 hours
Subjective/Interval History
-
Date of Service: January 21, 2025
Patient was seen and examined. He reported lower back pain and constipation.
Objective Data
-
Labs:
Laboratory Results
01/20/25 01/21/25 01/21/25
21:13 04:43 11:25
WBC 9.9
Hgb 13.2
Hct 40.3
Plt Count 149
APTT 39.5 H 38.5 H Pending
Sodium 136
Potassium 3.4 L
Chloride 104
Carbon Dioxide 26
BUN 11
Creatinine 0.5 L
Glucose 126 H
Calcium 8.3 L
Total Bilirubin 0.7
AST 27
ALT 34
Alkaline Phosphatase 121
Vital Signs:
Vital Signs
Temp Pulse Resp BP Pulse Ox
98.2 F 108 16 152/94 95
01/21/25 03:25 01/21/25 03:25 01/21/25 03:25 01/21/25 03:25 01/21/25 03:25
I&O
01/20/25 01/21/25 01/22/25
06:59 06:59 06:59
Intake Total 2640 / 2640 1470 / 1470
Output Total 3075 / 3075 650 / 650
Balance -435 / -435 820 / 820
[2025-01-21] MEDS: VITAMIN B-12 1000 MCG PO (07:50)
[2025-01-21] MEDS: VITAMIN D3 (cholecalciferol) 25 MCG PO (07:50)
[2025-01-21] MEDS: THERAGRAN 1 TABLET PO (07:50)
[2025-01-21] MEDS: MAGNESIUM OXIDE 250 MG PO (07:50)
--- NOTE | 2025-01-21 09:35 | W.PN.ID1 ---
Date of Service
Date of Service: January 21, 2025
Today's Communication
See below.
Assessment / Plan
# Strep pneumoniae bacteremia
- Admission CXR and chest CT: no PNA
-No meningeal signs/sxs
- Repeat blood cx's neg to date
- For repeat CXR today
- at bedside provided additional history.
She reports current back pain is acute on chronic.
I discussed MRI of spine to evaluate for discitis/osteo/epidural abscess.
Pt adamantly refuses due to severe claustrophobia. He refuses sedation for MRI
He is agreeable to outpatient open MRI.
- Check CRP and ESR.
- Although discitis associated with Strep pneumoniae is rare, will err on the side of caution and treat with 6 weeks of IV abx.
-Replace cefazolin with ceftriaxone 2g IV q24.
-Infusion sheed submitted to case manger.
# New onset afib with RVR
- Cardiology following
- TTE: no vege, EF 55%
# Acute thrombocytopenia
- resolving
Chief Complaint
-: Bacteremia
Subjective / Review of Systems
at bedside. She is providing additional history. She reports his back pain is severe and worse than baseline since being in the hospital. He thinks he will feel better once he has bowel movement and start walking around. said he can't get
up due to pain.
Vital Signs / Physical Exam
Vital Signs
Vital Signs
Temp Pulse Resp BP Pulse Ox
98.7 F 100 17 142/83 98
01/21/25 07:25 01/21/25 07:25 01/21/25 07:25 01/21/25 07:25 01/21/25 07:25
Physical Exam
Constitutional: No Acute Distress
Eyes: No Conjunctival Hemorrhage and Sclera Anicteric
Cardiovascular: Irregular Rate, S1/S2 and Other (tachycardic)
Pulmonary: Clear
Gastrointestinal: Soft, Non Tender and Non Distended
Extremities: Negative Edema
Musculoskeletal: Other (pt refuses to turn over for exam of his back)
Neurological: AO x 3 and No Motor Deficits
Objective Data
Lab Data
Lab Results
01/21/25 04:43
01/21/25 04:43
ESR 9 mm/hour (0-20) 01/18/25 10:09
APTT 38.5 Sec (23.4-35.0) H 01/21/25 04:43
Estimated Creat Clear > 125 ml/min 01/21/25 04:43
Lactic Acid 1.5 mmol/L (0.7-2.0) 01/18/25 13:36
Total Bilirubin 0.7 mg/dl (0.2-1.3) 01/21/25 04:43
AST 27 U/L (17-59) 01/21/25 04:43
ALT 34 U/L (0-50) 01/21/25 04:43
Alkaline Phosphatase 121 U/L (38-126) 01/21/25 04:43
C-Reactive Protein 141.90 mg/L (0.0-10.00) H 01/18/25 10:09
Most recent labs reviewed.
Micro Results:
01/19/25 08:41 Blood Culture - Preliminary
Blood/Venous No Growth in 48 hours- Final report to follow
01/18/25 13:36 Blood Culture - Preliminary
Blood/Venous Streptococcus pneumoniae
Gram Stain - Final
01/18/25 13:36 Blood Culture - Preliminary
Blood/Venous Streptococcus pneumoniae
Gram Stain - Final
01/19/25 10:20 Blood Culture - Preliminary
Blood/Venous No Growth in 24 hours- Final report to follow
01/18/25 15:02 Urine Culture - Final
Urine NO GROWTH
01/18/25 10:09 Influenza Types A & B (GEORGE) - Final
Nasal Swab Negative for Influenza A & B, NAAT
Negative results must be combined with clinical observations
and patient history.
Nucleic Acid Amplification test (NAAT)performed on the
[employer] platform.
01/18/25 CT chest: No evidence of pulmonary embolism. There is bibasilar atelectasis/scarring, similar in appearance to prior.
01/18/25 CT abd: Symmetric bilateral renal contrast enhancement without suspicious CT findings for pyelonephritis. No hydronephrosis or nephrolithiasis.
Care Review
Plan reviewed with: Physician
Total Time Spent with Patient (in minutes): Dr. Starkey
[2025-01-21] MEDS: NSS 1000 IV ×2 (09:42→20:29)
[2025-01-21] MEDS: HEPARIN 25000 UNITS/250 ML IV (10:58)
[2025-01-21] MEDS: ROCEPHIN 2000 MG IV (10:59)
[2025-01-21] MEDS: STERILE WATER FOR INJECTION 20 ML IV (11:00)
[2025-01-21 11:10] VITALS: BP 138/96
--- NOTE | 2025-01-21 11:12 | CM ---
CM following rte: discharge planning.
Reviewed pt's chart, met with pt and pt's spouse at bedside.
Per MD, pt will need home infusion therapy Ceftriaxone 2g IV g24 till 03/02/2025.
Both pt and his spouse are aware and requested home infusion therapy. CM made a referral to [facility] infusion [facility] and to [facility] for administering infusion therapy at home. Both pt and his spouse are aware and they are aware of a possible
co-pay.
PICC line information must be faxed to [facility] and [facility] when available.
D/C plan: home with [facility] and [facility].
CM will follow to assist pt with discharge home with [facility], [facility] and family support.
[2025-01-21 11:57] LABS: APTT 41.6 Sec (23.4-35.0)
[2025-01-21 12:44] LABS: Erythrocyte Sed Rate 5 mm/hour (0-20)
--- NOTE | 2025-01-21 13:33 | W.PN.CD ---
Today's Communication / Plan
-
Continue IV heparin
Continue IV dilt
Move to PO once closer to discharge and after abdominal distension better
Will benefit from at least a follow echo at some point in next few weeks or just after IV ceftiraxone completed
If AFib persists I favor EAN at time of planned cardioversion, makes sense to do it near completion of IV Ceftriaxone course
Can do EAN sooner if ID requests or clinical need develops
55 min spent caring for pt: extensive review of all records available, preparing this document, seeing/examine and communicating with ID/hospitalist and my partner.
Impression / Plan
-
Strep Pneumoniae bacteremia:
- Source uncertain
- ID planning 6 weeks of IV Ceftriaxone
- Strep Pneumoniae can cause IE
- Will proceed with a f/u echo at some point (timing depending on clinical status)
- We can progress to EAN if requested by ID
- The eccentric MR raises possibility of MV pathology that would could predispose to endocarditis
- May make sense to proceed with EAN at end of IV Ceftriaxone and proceed with cardioversion at that time
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
-no symptoms
- Will need serial follow up
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
Acute on chronic back pain
- Wont to standard MRI, has had successful open MRIs
Distended abdomen
- ? CXR suggests possible adynamic ileus
AFIB with RVR
- Reported to be paroxysmal
- So far still in AFIb
- Rate: IV Dilt, rates about 100 bpm
- IV heparin now
- [id number] score may be 1 (hx HTN) and will be 2 in February.
Asthma:
-stable without wheezing
HLD: statin
Subjective: No CP, palps or dyspnea
Data:
Echo 01/19/25: LVEF 55%. Mild-mod eccentric MR, PASP 35 mmHg No obvious valvular vegetations.
Physical Exam
Vital Signs/Labs
Vital Signs
Temp Pulse Resp BP Pulse Ox
98.5 F 104 17 138/96 95
01/21/25 11:10 01/21/25 11:10 01/21/25 11:10 01/21/25 11:10 01/21/25 12:24
01/21/25 04:43
01/21/25 04:43
APTT 41.6 Sec (23.4-35.0) H 01/21/25 11:26
Physical Exam
Constitutional: No acute distress
EENT: Anicteric
Cardiovascular: Rhythm/rate is irregular and Systolic murmur present
Respiratory: Respiratory effort normal and Lungs clear to auscul.
GI: Soft and Distention absent
Neuro/Psych: AO x 3
Data Reviewed
-
Date of Service: January 21, 2025
[2025-01-21 15:15] VITALS: BP 143/85
[2025-01-21] MEDS: CITROMA 300 ML PO (17:13)
[2025-01-21 18:29] LABS: APTT 37.8 Sec (23.4-35.0)
[2025-01-21 19:40] VITALS: BP 156/94
[2025-01-21] MEDS: LIDOCAINE 4% PATCH TOPICAL (20:29)
[2025-01-21] MEDS: ZOFRAN 4 MG IV (20:35)
[2025-01-21] MEDS: KCL 270 MEQ IV (20:40)
[2025-01-21] MEDS: SENOKOT-S PO (21:10)
[2025-01-21] MEDS: LIPITOR 10 MG PO (22:44)
[2025-01-21 23:25] VITALS: BP 127/82
[2025-01-22] MEDS: CARDIZEM 125 IV (01:01)
[2025-01-22 01:02] LABS: APTT 39.4 Sec (23.4-35.0)
[2025-01-22] MEDS: HEPARIN 25000 UNITS/250 ML IV (01:13)
[2025-01-22 03:29] VITALS: BP 138/97
[2025-01-22] MEDS: NSS 1000 IV (06:25)
[2025-01-22] MEDS: DILAUDID 0.25 MG IV (06:25)
--- NOTE | 2025-01-22 07:01 | W.PN.HOSP.TC ---
Today's Communication/Plan
-
Discharge today
Assessment / Plan
Assessment / Plan
Physical Exam
General: Not in acute distress
HEENT: Normocephalic, Moist mucous membranes
Respiratory: Clear to Auscultation Bilaterally
Cardiac: S1/S2, Regular Rhythm and Regular Rate
GI: Soft, Non Tender, Non Distended and Normal Bowel Sounds
Musculoskeletal: No Cyanosis and No Edema
Skin: Warm and Dry
Neuro: Awake, Alert, AAO x 3. Cranial Nerves 2 through 12 grossly intact, strength and sensation grossly intact in bilateral upper and lower extremities.
Psych: Calm
Assessment/Plan
64-year-old male past medical history of right lower extremity cellulitis, chronic ulcer right plantar midfoot, asthma, hyperlipidemia, right-sided sciatica presented with fevers, chills, back pain and cough for the 4 to 5 days prior to
presentation. No vomiting or diarrhea. No urinary symptoms. Pain was in the right flank region tender in 1 area. Pain was not like his usual sciatic pain he says. Patient on 2 L oxygen. Labs showed some transaminitis. Renal ultrasound showed no
evidence of hydronephrosis. CT chest was unremarkable. Urinalysis showed positive nitrates, +2 leukocyte esterase, 16-20 WBC. Patient with sepsis. Lumbar discitis is also possibility of patient is not tender over the lumbar spine and it is clearly
lateral.
#Gram Positive/Strep pneumoniae bacteremia of unknown etiology
-Blood cultures came back positive for Strep
-Replace cefazolin with ceftriaxone 2g IV q24. Received doses of Vancomycin earlier now Vanco stopped.
-Plan is for 6 weeks of IV antibiotics
-Spine appeared unremarkable in CT imaging
-Echo with no vegetations
-Patient adamantly refused MRI Spine imaging saying that he is claustrophobic and the only way he can get any MRI is if it is an outpatient open MRI
-Patient also said his back pain has resolved, but now only has sciatica-type back pain
-ID consulted, appreciate their evaluation and recommendations
#Constipation
- Already had senokot/miralax/dulcolax w/o success, so:
- Enema ordered. Also Mag Citrate. Also received soap suds enema per nurse.
- Patient had 2 brown bowel movements overnight, and his pain is much improved
#New-onset Atrial Fibrillation with RVR
- Cardizem Drip switched to PO
- Continue PO Cardizem on discharge
- Heparin drip for anticoagulation, plan for Eliquis on discharge (case management evaluating cost)
- Plan for EAN/DCCV in 6 weeks if still in A-fib
- Follow-up with your estate planning director in [place] and take your [place] [facility] paperwork with you and show to the estate planning director
#Acute thrombocytopenia
- Suspected from infection.
- Follow for now
#Asthma
- continue Dupixent q2W a home
#Hyperlipidemia
- continue simvastatin
#Chronic back pain (sciatica)
- continue Percocet
Code status: Full Code
DVT prophylaxis: Eliquis
More than 30 minutes spent in discharge including
Final examination of the patient
Summarizing hospital stay
Instructions for continuing care to all relevant caregivers
Preparation of discharge records, prescriptions, and referral forms
Total time spent (in minutes): 39
Anticipated Discharge: Today
Subjective/Interval History
-
Date of Service: January 22, 2025
Patient was seen and examined. His abdominal pain, back pain improved, he did have 2 bowel movements overnight.
Objective Data
-
Labs:
Laboratory Results
01/22/25 01/22/25
00:32 06:49
WBC Pending
Hgb Pending
Hct Pending
Plt Count Pending
APTT 39.4 H Pending
Sodium Pending
Potassium Pending
Chloride Pending
Carbon Dioxide Pending
BUN Pending
Creatinine Pending
Glucose Pending
Calcium Pending
Total Bilirubin Pending
AST Pending
ALT Pending
Alkaline Phosphatase Pending
Vital Signs:
Vital Signs
Temp Pulse Resp BP Pulse Ox
98.3 F 115 20 138/97 93
01/22/25 03:29 01/22/25 03:29 01/22/25 03:29 01/22/25 03:29 01/22/25 03:29
I&O
01/21/25 01/22/25 01/23/25
06:59 06:59 06:59
Intake Total 1470 / 1470 4020 / 4020
Output Total 650 / 650 1725 / 1725
Balance 820 / 820 2295 / 2295
[2025-01-22 07:02] LABS: % Basophils 0.2 % (0-2); % Eosinophils 0.4 % (0-6); % Immature Granulocytes 1.6 % (0-0.5); % Lymphocytes 12.5 % (20.5-51.1); % Monocytes 5.6 % (1.7-9.3); % Neutrophils 79.7 % (42.2-75.2); Absolute Eosinophils 0.1 10^3/uL (0-0.7); Absolute Immature Granulocytes 0.2 10^3/uL (0-0.05); Absolute Lymphocytes 1.5 10^3/uL (1.2-3.4); Absolute Monocytes 0.7 10^3/uL (0.1-0.6); Absolute Neutrophils 9.6 10^3/uL (1.4-6.5); Hematocrit 42.1 % (39.0-52.0); Mean Corp Hgb Conc. 33.3 g/dL (33.0-37.0); Mean Corpuscular Hgb 27.8 pg (27.0-31.0); Mean Corpuscular Volume 83.5 fL (80.0-94.0); Mean Platelet Volume 9.3 fL (7.4-10.4); Nucleated Red Blood Cells % 0 % (-); Platelet Count 194 10^3/uL (130-400); Red Blood Cell Count 5.04 10^6/uL (4.70-6.10); Red Cell Dist. Width 15.9 % (11.5-14.5)
[2025-01-22 07:10] LABS: APTT 56.4 Sec (23.4-35.0)
[2025-01-22 07:44] VITALS: BP 125/82
[2025-01-22 07:50] LABS: ALT (SGPT) 28 U/L (0-50); AST (SGOT) 29 U/L (17-59); Albumin 2.7 g/dl (3.5-5.0); Alkaline Phosphatase 147 U/L (38-126); Blood Urea Nitrogen 10 mg/dl (9-20); Calcium 8.1 mg/dl (8.4-10.2); Carbon Dioxide 24 mmol/L (22-30); Chloride 104 mmol/L (98-107); Estimated Creatinine Clearance > 125 ml/min; Glucose 111 mg/dl (70-99); Potassium 3.9 mmol/L (3.5-5.1); Sodium 135 mmol/L (135-145); Total Bilirubin 0.8 mg/dl (0.2-1.3); Total Protein 5.1 g/dl (6.3-8.2); eGFR > 60.00
--- NOTE | 2025-01-22 08:55 | W.PN.CD ---
Today's Communication / Plan
-
Switch IV diltiazem to p.o. and titrate for goal HR <110
Switch IV heparin to Eliquis and consult case management for pricing
Plan for EAN/DCCV in 6 weeks if still in A-fib
Impression / Plan
-
Strep Pneumoniae bacteremia:
- Source uncertain
- ID planning 6 weeks of IV Ceftriaxone
- No planned EAN as it would not policy change clerk (already planning for 6 wks IV abx)
- Will proceed with a f/u TTE at end of abx course
- We can progress to EAN if requested by ID
AFIB with RVR
- Reported to be paroxysmal
- So far still in AFIb
- [id number] score may be 1 (hx HTN) and will be 2 in February.
- Rate: Switch IV diltiazem to PO and monitor HRs (goal <110)
- Switch heparin gtt to Eliquis and consult CM for pricing
- Will plan for EAN/DCCV in 6 weeks (after completing abx) if he is still in afib at that time
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
-no symptoms
- Will need serial follow up
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
Acute on chronic back pain
- Wont do standard MRI, has had successful open MRIs
Distended abdomen, improving
- ? CXR suggests possible adynamic ileus
- Had BM this AM
Asthma:
-stable without wheezing
HLD: statin
Subjective: No CP, palps or dyspnea. Had a bowel movement overnight and abdominal distention is improved. No alarms on telemetry. He is wondering when he can go home.
Data:
Echo 01/19/25: LVEF 55%. Mild-mod eccentric MR, PASP 35 mmHg No obvious valvular vegetations.
Physical Exam
Vital Signs/Labs
Vital Signs
Temp Pulse Resp BP Pulse Ox
98.2 F 107 22 125/82 91
01/22/25 07:44 01/22/25 07:44 01/22/25 07:44 01/22/25 07:44 01/22/25 07:44
01/22/25 06:49
01/22/25 06:49
APTT 56.4 Sec (23.4-35.0) H 01/22/25 06:49
Physical Exam
Constitutional: No acute distress and Comfortable
Cardiovascular: Pedal edema is absent, Rhythm/rate is irregular, S1S2 is normal and Murmur/rub/gallop absent
Respiratory: Respiratory effort normal and Lungs clear to auscul.
GI: Distention present
Neuro/Psych: AO x 3
Data Reviewed
-
Date of Service: January 22, 2025
Medical Decision Making: Reviewed Test Results, Independent Historian Assessment, Test Interpretation and Review of Case with other Provider
EKG: Tracing Personally Visualized and interpreted
Echo: Report Reviewed by me
Labs: Labs Reviewed by me
[2025-01-22] MEDS: ELIQUIS 5 MG PO ×2 (10:32→19:35)
[2025-01-22] MEDS: VITAMIN B-12 1000 MCG PO (10:32)
[2025-01-22] MEDS: MIRALAX 17 GRAMS PO (10:32)
[2025-01-22] MEDS: THERAGRAN 1 TABLET PO (10:32)
[2025-01-22] MEDS: VITAMIN D3 (cholecalciferol) 25 MCG PO (10:32)
[2025-01-22] MEDS: CARDIZEM CD 180 MG PO (10:32)
[2025-01-22] MEDS: MAGNESIUM OXIDE 250 MG PO (10:32)
[2025-01-22] MEDS: SENOKOT-S 1 TABLET PO ×2 (10:32→19:35)
[2025-01-22] MEDS: TYLENOL 650 MG PO ×2 (10:33→17:49)
[2025-01-22] MEDS: ROCEPHIN 2000 MG IV (10:34)
[2025-01-22] MEDS: STERILE WATER FOR INJECTION 20 ML IV (10:35)
--- NOTE | 2025-01-22 10:35 | W.PN.ID1 ---
Date of Service
Date of Service: January 22, 2025
Today's Communication
Continue antibiotics
Assessment / Plan
# Strep pneumoniae bacteremia
- Admission CXR and chest CT: no PNA
- No meningeal signs/sxs
- Repeat blood cx's neg to date
- Repeat CXR with interval increase in mild opacity in the basilar segments of the lower lobes.
- He is agreeable to outpatient open MRI.
- CRP elevated / ESR normal
- Although discitis associated with Strep pneumoniae is rare, will err on the side of caution and treat with 6 weeks of IV abx.
-Continue ceftriaxone 2g IV q24.
-Infusion sheet submitted to case lea.
# New onset afib with RVR
- Cardiology following
- TTE: no vege, EF 55%
# Acute thrombocytopenia
- resolving
����������������������������������������������������������
Chief Complaint
-: Bacteremia
Subjective / Review of Systems
Review of Systems: No Fever and No Chills
Vital Signs / Physical Exam
Vital Signs
Vital Signs
Temp Pulse Resp BP Pulse Ox
98.2 F 107 22 125/82 91
01/22/25 07:44 01/22/25 07:44 01/22/25 07:44 01/22/25 07:44 01/22/25 07:44
Physical Exam
Constitutional: No Acute Distress, Comfortable and Non-toxic
Pulmonary: Clear and Non Labored
Gastrointestinal: Non Distended
Extremities: Negative Edema
Neurological: AO x 3 and No Motor Deficits
Objective Data
Lab Data
Lab Results
01/22/25 06:49
01/22/25 06:49
ESR 5 mm/hour (0-20) 01/21/25 04:43
APTT 56.4 Sec (23.4-35.0) H 01/22/25 06:49
Estimated Creat Clear > 125 ml/min 01/22/25 06:49
Lactic Acid 1.5 mmol/L (0.7-2.0) 01/18/25 13:36
Total Bilirubin 0.8 mg/dl (0.2-1.3) 01/22/25 06:49
AST 29 U/L (17-59) 01/22/25 06:49
ALT 28 U/L (0-50) 01/22/25 06:49
Alkaline Phosphatase 147 U/L (38-126) H 01/22/25 06:49
C-Reactive Protein 145.50 mg/L (0.0-10.00) H 01/21/25 04:43
Most recent labs reviewed.
Micro Results:
01/19/25 08:41 Blood Culture - Preliminary
Blood/Venous No Growth in 72 hours- Final report to follow
01/18/25 13:36 Blood Culture - Final
Blood/Venous Streptococcus pneumoniae
Gram Stain - Final
01/18/25 13:36 Blood Culture - Final
Blood/Venous Streptococcus pneumoniae
Gram Stain - Final
01/19/25 10:20 Blood Culture - Preliminary
Blood/Venous No Growth in 48 hours- Final report to follow
01/18/25 15:02 Urine Culture - Final
Urine NO GROWTH
01/18/25 10:09 Influenza Types A & B (GEORGE) - Final
Nasal Swab Negative for Influenza A & B, NAAT
Negative results must be combined with clinical observations
and patient history.
Nucleic Acid Amplification test (NAAT)performed on the
[employer] platform.
01/18/25 CT chest: No evidence of pulmonary embolism. There is bibasilar atelectasis/scarring, similar in appearance to prior.
01/18/25 CT abd: Symmetric bilateral renal contrast enhancement without suspicious CT findings for pyelonephritis. No hydronephrosis or nephrolithiasis.
--- NOTE | 2025-01-22 11:00 | PTCARENOTE ---
Patient converted to NSR, HR 72-89. Physician made aware. Continue with PO Cardizem current dose (IV Cardizem d/c @ 1000).
[2025-01-22 11:11] VITALS: BP 139/84
--- NOTE | 2025-01-22 11:38 | CM ---
Addendum entered by Bella Cm 01/22/25 15:34:
Discussion with Dr Starkey- pt medically ready for dc
Multiple calls with [facility]
Bedside teaching cannot be arranged until Fri
Bedside meeting with pt
He is not pleased regarding no plan for dc until Fri
Insistent on dc tomorrow after abx dose
Pt has 100% for meds until he reaches his deductible and out of pocket max
Multiple calls with [facility]- bedside teaching cannot be completed over weekend, will need to be planned for Fri
Call with [facility]- no IV nurse available for teaching either, earliest appt on which he is scheduled for
Pt aware
CM to follow up on Friday to coordinate bedside teaching with [facility]
Discharge Disposition- home with [facility] and [facility]
Original Note:
CM reviewed and noted consult for cardiac med pricing
Call with [facility] [phone] for pricing
TT/Dr Hayden
Eliquis 5 mg BID & Xarelto 20 mg QD- same costs
$85- 30 day retail
$170- 90 day mail order
Discharge Disposition- Plan for home with 6 weeks IV abx through [facility] and [facility]
--- NOTE | 2025-01-22 14:00 | W.PN.UPDATE ---
Update Note
Progress Note Update
Per communication today with shelter case manager, patient's intravenous antibiotics are still processing and likely will not be ready until 01/24/25. Anticipate discharge on 01/24/25.
[2025-01-22 15:35] VITALS: BP 127/69
[2025-01-22] MEDS: NSS IV (16:41)
--- NOTE | 2025-01-22 17:47 | PTCARENOTE ---
Patient ambulated in [place] with walker and supervision x1. Patient ambulated 100 feet. patient tolerated sitting in chair 2 hours. Family at bedside.
[2025-01-22 19:30] VITALS: BP 151/82
[2025-01-22] MEDS: LIPITOR 10 MG PO (19:37)
[2025-01-22] MEDS: LIDOCAINE 4% PATCH TOPICAL (19:38)
[2025-01-22 23:09] VITALS: BP 156/92
[2025-01-23] VITALS (8 sets, daily range): BP systolic 141–179; BP diastolic 81–92
[2025-01-23] MEDS: TYLENOL 650 MG PO ×2 (05:59→16:08)
--- NOTE | 2025-01-23 07:13 | W.PN.HOSP.TC ---
Today's Communication/Plan
-
Per case management, home antibiotic service and teaching cannot be set up until tomorrow, and they cannot guarantee (until tomorrow) that antibiotics can be done tomorrow at home, and patient needs teaching
Continue antibiotics, Eliquis, Cardizem
Assessment / Plan
Assessment / Plan
Physical Exam
General: Not in acute distress
HEENT: Normocephalic, Moist mucous membranes
Respiratory: Clear to Auscultation Bilaterally
Cardiac: S1/S2, Regular Rhythm and Regular Rate
GI: Soft, Non Tender, Non Distended and Normal Bowel Sounds
Musculoskeletal: No Cyanosis and No Edema
Skin: Warm and Dry
Neuro: Awake, Alert, AAO x 3. Cranial Nerves 2 through 12 grossly intact, strength and sensation grossly intact in bilateral upper and lower extremities.
Psych: Calm
Assessment/Plan
64-year-old male past medical history of right lower extremity cellulitis, chronic ulcer right plantar midfoot, asthma, hyperlipidemia, right-sided sciatica presented with fevers, chills, back pain and cough for the 4 to 5 days prior to
presentation. No vomiting or diarrhea. No urinary symptoms. Pain was in the right flank region tender in 1 area. Pain was not like his usual sciatic pain he says. Patient on 2 L oxygen. Labs showed some transaminitis. Renal ultrasound showed no
evidence of hydronephrosis. CT chest was unremarkable. Urinalysis showed positive nitrates, +2 leukocyte esterase, 16-20 WBC. Patient with sepsis. Lumbar discitis is also possibility of patient is not tender over the lumbar spine and it is clearly
lateral.
#Gram Positive/Strep pneumoniae bacteremia of unknown etiology
-Blood cultures came back positive for Strep
-Replace cefazolin with ceftriaxone 2g IV q24. Received doses of Vancomycin earlier now Vanco stopped.
-Plan is for 6 weeks of IV antibiotics
-Spine appeared unremarkable in CT imaging
-Echo with no vegetations
-Patient adamantly refused MRI Spine imaging saying that he is claustrophobic and the only way he can get any MRI is if it is an outpatient open MRI
-Patient also said his back pain has resolved, but now only has sciatica-type back pain
-ID consulted, appreciate their evaluation and recommendations
#Constipation
#Distended Abdomen - IMPROVING
- ? CXR suggests possible adynamic ileus
- Already had senokot/miralax/dulcolax w/o success, so:
- Enema ordered. Also Mag Citrate. Also received soap suds enema per nurse.
- Patient had 2 brown bowel movements on 01/21-01/22, and his pain is much improved
#New-onset Atrial Fibrillation with RVR
- Cardizem Drip switched to PO
- Continue PO Cardizem 180 mg daily on discharge
- Heparin drip for anticoagulation, plan for Eliquis 5 mg BID on discharge
- TTE recommended at the completion of IV antibiotics. No planned EAN as it would not change analyst (already planning for 6 wks IV abx)
- Follow-up with travel guide in [place]
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
- Will need serial follow up
#Acute thrombocytopenia
- Suspected from infection.
- Follow for now
#Asthma
- Stable
- continue Dupixent q2W a home
#Hyperlipidemia
- continue simvastatin
#Chronic back pain (sciatica)
- continue Percocet
Code status: Full Code
DVT prophylaxis: Eliquis
Anticipated Discharge: Within 24 hours
Subjective/Interval History
-
Date of Service: January 23, 2025
Patient was seen and examined. He reported some back pain like before, but denied any other complaints.
Objective Data
-
Labs:
Laboratory Results
01/23/25
06:00
WBC Pending
Hgb Pending
Hct Pending
Plt Count Pending
Vital Signs:
Vital Signs
Temp Pulse Resp BP Pulse Ox
98.1 F 77 22 149/82 93
01/23/25 03:09 01/23/25 03:09 01/23/25 03:09 01/23/25 03:09 01/23/25 03:09
I&O
01/22/25 01/23/25 01/24/25
06:59 06:59 06:59
Intake Total 4020 / 4020 3300 / 3300
Output Total 1725 / 1725 2024 / 2024
Balance 2295 / 2295 1275 / 1275
[2025-01-23] MEDS: MIRALAX 17 GRAMS PO (09:24)
[2025-01-23] MEDS: MAGNESIUM OXIDE 250 MG PO (09:24)
[2025-01-23] MEDS: VITAMIN D3 (cholecalciferol) 25 MCG PO (09:24)
[2025-01-23] MEDS: VITAMIN B-12 1000 MCG PO (09:25)
[2025-01-23] MEDS: SENOKOT-S 1 TABLET PO ×2 (09:25→20:31)
[2025-01-23] MEDS: CARDIZEM CD 180 MG PO (09:25)
[2025-01-23] MEDS: THERAGRAN 1 TABLET PO (09:25)
[2025-01-23] MEDS: ELIQUIS 5 MG PO ×2 (09:25→20:31)
[2025-01-23] MEDS: STERILE WATER FOR INJECTION 20 ML IV (09:26)
[2025-01-23] MEDS: ROCEPHIN 2000 MG IV (09:26)
--- NOTE | 2025-01-23 10:45 | W.PN.CD ---
Today's Communication / Plan
-
Discharge meds: Eliquis 5 mg twice daily, diltiazem 180 mg daily
He will request follow-up with his outpatient classified advertising supervisor.
Recommend TTE at the completion of IV antibiotics
Cardiology will sign off at this time. Please call with additional questions or concerns.
Impression / Plan
-
Strep Pneumoniae bacteremia:
- Source uncertain
- ID planning 6 weeks of IV Ceftriaxone
- No planned EAN as it would not private branch exchange repairer (already planning for 6 wks IV abx)
- Will proceed with a f/u TTE at end of abx course
AFIB with RVR
- Reported to be paroxysmal. Converted to NSR on 01/22/2025.
- [id number] score may be 1 (hx HTN) and will be 2 in February.
- Rate: Continue p.o. diltiazem 180 mg daily
- Continue Eliquis 5 mg twice daily
- He will request follow-up with his classified advertising supervisor in [place]
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
- no symptoms
- Will need serial follow up
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
Acute on chronic back pain
- Wont do standard MRI, has had successful open MRIs
Distended abdomen, improving
- ? CXR suggests possible adynamic ileus
- Had BM this AM
Asthma:
-stable without wheezing
HLD: statin
Subjective: Feels well this morning. Converted to sinus rhythm yesterday. No recurrent atrial fibrillation on telemetry.
Data:
Echo 01/19/25: LVEF 55%. Mild-mod eccentric MR, PASP 35 mmHg No obvious valvular vegetations.
Physical Exam
Vital Signs/Labs
Vital Signs
Temp Pulse Resp BP Pulse Ox
98.1 F 91 16 152/81 95
01/23/25 07:58 01/23/25 07:58 01/23/25 07:58 01/23/25 07:58 01/23/25 07:58
01/22/25 06:49
APTT Cancelled 01/22/25 14:00
Physical Exam
Constitutional: No acute distress and Comfortable
Cardiovascular: Rhythm & rate is regular, Pedal edema is absent, S1S2 is normal and Murmur/rub/gallop absent
Respiratory: Respiratory effort normal and Lungs clear to auscul.
Neuro/Psych: AO x 3
Data Reviewed
-
Date of Service: January 23, 2025
Medical Decision Making: Reviewed Test Results, Independent Historian Assessment, Test Interpretation and Review of Case with other Provider
EKG: Tracing Personally Visualized and interpreted
Echo: Report Reviewed by me
Labs: Labs Reviewed by me
[2025-01-23 12:02] LABS: % Basophils 0.3 % (0-2); % Eosinophils 0.5 % (0-6); % Immature Granulocytes 2.3 % (0-0.5); % Lymphocytes 8.8 % (20.5-51.1); % Monocytes 7.5 % (1.7-9.3); % Neutrophils 80.6 % (42.2-75.2); Absolute Eosinophils 0.1 10^3/uL (0-0.7); Absolute Immature Granulocytes 0.3 10^3/uL (0-0.05); Absolute Lymphocytes 1.1 10^3/uL (1.2-3.4); Absolute Monocytes 0.9 10^3/uL (0.1-0.6); Absolute Neutrophils 9.7 10^3/uL (1.4-6.5); Hematocrit 41.3 % (39.0-52.0); Hemoglobin 13.9 g/dL (13.0-18.0); Mean Corp Hgb Conc. 33.7 g/dL (33.0-37.0); Mean Corpuscular Volume 83.3 fL (80.0-94.0); Mean Platelet Volume 9.3 fL (7.4-10.4); Nucleated Red Blood Cells % 0 % (-); Platelet Count 256 10^3/uL (130-400); Red Blood Cell Count 4.96 10^6/uL (4.70-6.10); Red Cell Dist. Width 15.6 % (11.5-14.5)
--- NOTE | 2025-01-23 13:41 | PTCARENOTE ---
Patient OOb in chair for 2hr. Patient ambulating in halls with walker and supervision. Patient c/o intermittent left lower back pain. Spouse at bedside.
[2025-01-23] MEDS: LIDOCAINE 4% PATCH 1 PATCH TOPICAL (21:35)
[2025-01-23] MEDS: LIPITOR 10 MG PO (21:35)
[2025-01-24] MEDS: ROXICODONE 10 MG PO ×2 (01:29→10:30)
--- NOTE | 2025-01-24 01:46 | PTCARENOTE ---
Pt complaining of severe low back pain requesting Dilaudid for pain. Pt informed pain medications were put on hold. Pt is planned for discharge in am after ABX. Pt insisting on pain medication at this time. Andrea DE DIOS notified, one time order
obtained and administered as ordered. Will continue to monitor.
[2025-01-24 07:43] VITALS: BP 148/87
[2025-01-24] MEDS: VITAMIN D3 (cholecalciferol) 25 MCG PO (08:48)
[2025-01-24] MEDS: CARDIZEM CD 180 MG PO (08:48)
[2025-01-24] MEDS: VITAMIN B-12 1000 MCG PO (08:48)
[2025-01-24] MEDS: THERAGRAN 1 TABLET PO (08:48)
[2025-01-24] MEDS: ELIQUIS 5 MG PO (08:48)
[2025-01-24] MEDS: SENOKOT-S 1 TABLET PO (08:48)
[2025-01-24] MEDS: MAGNESIUM OXIDE 250 MG PO (08:48)
[2025-01-24] MEDS: MIRALAX 17 GRAMS PO (08:50)
[2025-01-24] MEDS: STERILE WATER FOR INJECTION 20 ML IV (10:31)
[2025-01-24] MEDS: TYLENOL 325 MG PO (10:31)
[2025-01-24] MEDS: ROCEPHIN 2000 MG IV (10:31)
--- NOTE | 2025-01-24 11:07 | CM ---
Addendum entered by Otilia Koroma RN 01/24/25 11:22:
CM spoke with patient and updated on plan. Patient stated that he has a 3pm [facility] appointment that he does not want to miss. CM updated bedside RN and hospitalist.
Original Note:
CM spoke with Melissa from [facility] and confirmed that patient will be seen on 01/25. CM was updated by Brigette from [facility] that she will be in with patient today at 12:30 to confirm teach. CM updated bedside RN and hospitalist.
--- NOTE | 2025-01-24 11:10 | W.PN.ID1 ---
Date of Service
Date of Service: January 24, 2025
Today's Communication
Continue ceftriaxone 2g IV q24 through 03/02/25.
Assessment / Plan
# Strep pneumoniae bacteremia
# Acute on chronic back pain
- Admission CXR and chest CT: no PNA
- No meningeal signs/sxs
- Repeat blood cx's neg to date
- Repeat CXR with interval increase in mild opacity in the basilar segments of the lower lobes.
- Pt refuses MRI even with sedation
- He is agreeable to outpatient open MRI.
- CRP elevated, ESR normal
- Although discitis associated with Strep pneumoniae is rare, will err on the side of caution and treat with 6 weeks of IV abx.
-Continue ceftriaxone 2g IV q24 through 03/02/25.
Trend weekly CRP, WBC, CMP
Picc in place
-Infusion sheet submitted to case lea on 01/21.
# New onset afib with RVR
- TTE: no vege, EF 55%
- Cardiology plans to do EAN at time of cardioversion in 6 weeks, if necessary.
# Acute thrombocytopenia
- resolving
����������������������������������������������������������
Chief Complaint
-: Bacteremia
Subjective / Review of Systems
Back pain severe. He may have 'overdid' it yesterday with ambulation.
He wants to go home.
Vital Signs / Physical Exam
Vital Signs
Vital Signs
Temp Pulse Resp BP Pulse Ox
98.5 F 86 18 148/87 92
01/24/25 07:43 01/24/25 07:43 01/24/25 07:43 01/24/25 08:48 01/24/25 07:43
Physical Exam
Constitutional: No Acute Distress
Cardiovascular: Regular Rate and S1/S2
Pulmonary: Clear and Non Labored
Gastrointestinal: Soft, Non Tender and Non Distended
Extremities: Negative Edema
Neurological: AO x 3 and No Motor Deficits
Objective Data
Lab Data
Lab Results
01/22/25 06:49
ESR 5 mm/hour (0-20) 01/21/25 04:43
APTT Cancelled 01/22/25 14:00
Estimated Creat Clear > 125 ml/min 01/22/25 06:49
Lactic Acid 1.5 mmol/L (0.7-2.0) 01/18/25 13:36
Total Bilirubin 0.8 mg/dl (0.2-1.3) 01/22/25 06:49
AST 29 U/L (17-59) 01/22/25 06:49
ALT 28 U/L (0-50) 01/22/25 06:49
Alkaline Phosphatase 147 U/L (38-126) H 01/22/25 06:49
C-Reactive Protein 145.50 mg/L (0.0-10.00) H 01/21/25 04:43
Most recent labs reviewed.
Micro Results:
01/19/25 10:20 Blood Culture - Final
Blood/Venous No Growth - Final Report
01/19/25 08:41 Blood Culture - Final
Blood/Venous No Growth - Final Report
01/18/25 13:36 Blood Culture - Final
Blood/Venous Streptococcus pneumoniae
Gram Stain - Final
01/18/25 13:36 Blood Culture - Final
Blood/Venous Streptococcus pneumoniae
Gram Stain - Final
01/18/25 15:02 Urine Culture - Final
Urine NO GROWTH
01/18/25 10:09 Influenza Types A & B (GEORGE) - Final
Nasal Swab Negative for Influenza A & B, NAAT
Negative results must be combined with clinical observations
and patient history.
Nucleic Acid Amplification test (NAAT)performed on the
[employer] platform.
01/18/25 CT chest: No evidence of pulmonary embolism. There is bibasilar atelectasis/scarring, similar in appearance to prior.
01/18/25 CT abd: Symmetric bilateral renal contrast enhancement without suspicious CT findings for pyelonephritis. No hydronephrosis or nephrolithiasis.
Care Review
Plan reviewed with: Other (Case management Otilia)
--- NOTE | 2025-01-24 11:39 | W.PN.HOSP.TC ---
Today's Communication/Plan
-
d/c home
Assessment / Plan
Assessment / Plan
#Streptococcus pneumoniae bacteremia
-Blood cultures came back positive for Strep pneumoniae
-Plan is for 6 weeks of IV antibiotics. Continue Rocephin 2g/d
-Spine appeared unremarkable in CT imaging
-Echo with no vegetations
-Patient adamantly refused MRI Spine imaging saying that he is claustrophobic and the only way he can get any MRI is if it is an outpatient open MRI. prescription provided for an outpatient MRI T and L spine.
-Patient also said his back pain has resolved, but now only has sciatica-type back pain
#Constipation - resolved
#Distended Abdomen - IMPROVING
- CXR suggests possible adynamic ileus
- Patient had 2 brown bowel movements on 01/21-01/22, after laxatives use
#New-onset Atrial Fibrillation with RVR
-Cardizem Drip switched to PO
-Continue PO Cardizem 180 mg daily on discharge
-Heparin drip for anticoagulation, plan for Eliquis 5 mg BID on discharge
-TTE recommended at the completion of IV antibiotics. No planned EAN as it would not changer fixer (already planning for 6 wks IV abx)
-Follow-up with sink cutter in [place]
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
-Will need serial follow up
#Acute thrombocytopenia
-Suspected from infection.
-Follow for now
#Asthma
-Stable
-continue Dupixent q2W a home
#Hyperlipidemia
-continue simvastatin
#Chronic back pain (sciatica)
-continue Percocet
Code status: Full Code
DVT prophylaxis: Eliquis
More than 30 minutes spent in discharge including
Final examination of the patient
Summarizing hospital stay
Instructions for continuing care to all relevant caregivers
Preparation of discharge records, prescriptions, and referral forms
Total time spent (in minutes): 38 mins
Anticipated Discharge: Today
Subjective/Interval History
-
Date of Service: January 24, 2025
complaining of back pain
no fever overnight
Objective Data
-
Labs:
Laboratory Results
01/24/25
06:00
WBC Pending
Hgb Pending
Hct Pending
Plt Count Pending
Vital Signs:
Vital Signs
Temp Pulse Resp BP Pulse Ox
98.5 F 86 18 148/87 92
01/24/25 07:43 01/24/25 07:43 01/24/25 07:43 01/24/25 08:48 01/24/25 07:43
I&O
01/23/25 01/24/25 01/25/25
06:59 06:59 06:59
Intake Total 3300 / 3300 840 / 840 480 / 480
Output Total 2024 2600 / 2600 350 / 350
Balance 1275 / 1275 -1760 / -1760 130 / 130
Review of Systems
-
Respiratory: Reports No Symptoms
Cardiac: Reports No Symptoms
Abdomen/GI: Reports No Symptoms
Physical Exam
-
General: Well Developed
HEENT: Normocephalic; Negative Oxygen
Respiratory: Clear to Auscultation
Cardiac: Regular Rhythm and S1/S2; Negative Murmur
GI: Soft, Nontender and Nondistended
Neuro: Awake, Alert, Oriented and No Motor Deficits
[2025-01-24 14:03] VITALS: BP 153/76
[2025-01-24 18:46] LABS: Hepatitis C Antibody Negative (Negative)
== END 2025-01-24 15:09 | disposition home health service (06) | DRG 872 ==
LOC: 1 ACUTE 16:14
PROVIDERS: Hospitalist; Nurse Practitioner; Nurse Practitioner Family; Radiology Diagnostic Radiology; Student in an Organized Health Care Education/Training Program; ADMITTING PHYSICIAN Hospitalist; ATTENDING PHYSICIAN Hospitalist; CONSULT PHYSICIAN Internal Medicine Infectious Disease; EMERGENCY PHYSICIAN Emergency Medicine; FAMILY PHYSICIAN Family Medicine; OTHER PHYSICIAN Internal Medicine
PROC: 02HV33Z Insertion of Infusion Device into Superior Vena Cava, Percutaneous Approach (ICD-10-PCS; 2025-01-22)
DX: A40.3 Sepsis due to Streptococcus pneumoniae (principal); L97.419 Non-pressure chronic ulcer of right heel and midfoot with unspecified severity; J98.11 Atelectasis; K56.0 Paralytic ileus; J45.909 Unspecified asthma, uncomplicated; E78.00 Pure hypercholesterolemia, unspecified; G89.29 Other chronic pain; I34.0 Nonrheumatic mitral (valve) insufficiency; I48.91 Unspecified atrial fibrillation; M06.9 Rheumatoid arthritis, unspecified; R09.02 Hypoxemia; K59.00 Constipation, unspecified; R06.89 Other abnormalities of breathing; D69.6 Thrombocytopenia, unspecified; F40.240 Claustrophobia; R74.01 Elevation of levels of liver transaminase levels; M54.31 Sciatica, right side; Z87.19 Personal history of other diseases of the digestive system; Z80.0 Family history of malignant neoplasm of digestive organs; Z82.49 Family history of ischemic heart disease and other diseases of the circulatory system; Z88.1 Allergy status to other antibiotic agents; Z88.0 Allergy status to penicillin; Z11.52 Encounter for screening for COVID-19; Z79.891 Long term (current) use of opiate analgesic
CPT/HCPCS: 71045; 71046; 71275; 74160; 76770; 80048; 80053; 81003; 81015; 83605; 84443; 85025; 85027; 85652; 85730; 86140; 86803; 87040; 87077; 87086; 87186; 87205; 87502; 87811; 93005; 93306; 96374; 96375; 97116; 97163; 97167; 97535; 99291; Q9967